=== PATIENT | male | born 1955 | race African-American/Black ===

== ENCOUNTER 2017-02-20 14:11 | Inpatient (IN) ==
[2017-02-20] MEDS ORDERED: METOCLOPRAMIDE 10 MG/2 ML VIAL IV STA (15:07)
[2017-02-20] MEDS ORDERED: ONDANSETRON 4 MG/2 ML VIAL IV STA (15:07)
[2017-02-20] MEDS ORDERED: PANTOPRAZOLE 40 MG VIAL IV STA (15:07)
[2017-02-20] MEDS ORDERED: SODIUM CHLORIDE 0.9% 500 ML IV STA (15:07)
[2017-02-20] MEDS ORDERED: DICYCLOMINE 20 MG/2 ML AMP IM ONE ×2 (15:07→15:49)
--- NOTE | 2017-02-20 15:13 | Emergency Department Note ---
Arrival - Arrival Chief Complaint: Abdominal / Flank Pain Stated Complaint: stomach hurting and throwing up ED Nursing Triage Note: C/O having abdomen pain that started on tuesday., denies checking temp., + chills., + diarrhea, + nausea., + vomiting., denies having urinary symptoms., states his pain is located in the center of the lower abd., states the pain is stabbing , states his last meal was last evening., states he has not been taking his blood pressure medication over the last two days., last dialysis was 1 month ago Mode of Arrival: Ambulatory Limitations: No Limitations Source: Patient Time Seen by Provider: 02/20/17 15:07 - History of Present Illness HPI Narrative: This 61-year-old black male presents with onset of crampy periumbilical pain 3 days previously followed by low-grade nausea with a couple episodes of vomiting but significant loose bowel movements of 3 a day. He denies any melena or bright red blood per stool nor does he describe any emesis that is coffee- ground in appearance. He denies any complaints of heartburn, belching, water brash, colitis, diverticulitis, or pancreatitis. The patient is a former dialysis patient who has just recently been taken off dialysis with miraculous return of his renal function to normal. Coincident with stopping dialysis has been return of his heart rhythm to normal sinus from hard to control atrial fibrillation. Currently he appears medically stable. Onset (ago): day(s) (Patient presents 3 days post onset of symptoms) Allergies/Adverse Reactions: Allergies Allergy/AdvReac Type Severity Reaction Status Date / Time indomethacin [From Indocin] Allergy Severe ITCHING Verified 02/20/17 14:23 Home Medications: Home Medications Medication Instructions Recorded Confirmed Type Carvedilol [Coreg] 6.25 mg PO BID 02/20/17 02/20/17 History Sevelamer Carbonate Tab [Renvela 800 mg PO TID W/MEALS 02/20/17 02/20/17 History Tab] amLODIPine [Norvasc] 10 mg PO DAILY 02/20/17 02/20/17 History cloNIDine TAB [Catapres Tab] 0.3 mg PO TID 02/20/17 02/20/17 History Review of System - Review of System 12 point system: reviewed and no additional remarkable complaints except as stated - Review of System Constitutional: Present: as per HPI Respiratory: Present: as per HPI Cardiovascular: Present: as per HPI Gastrointestinal: Present: as per HPI Medical,Surgical,& Family Hx - Medical History Cardio: History of: Cardiac Dysrhythmia (IRREGULAR HEAT RQATE -HX PT TOOK HIMSELF OFF NORVASC AND HAS TO SEEM TO DC), Hypertension Comment Only: Cardiovascular Problems (TOLD DR MASTERSON ABOUT IRREGULAR HEART RATE HE SAID NOTHING TO WORRY ABOUT) HEENT: History of: Eye Problem (GLASSES) Renal: History of: Dialysis (CATHETERS R UPPER CHEST), Renal Failure Musculoskeletal: History of: Musculoskeletal Problems (GOUT) - Surgical History Abdominal Surgeries: Surgical HX of: Colonoscopy, Hernia Repair - Family History Family History: Reports;: Family Hypertension - Social History Smoking Status: Never smoker Frequency of Alcohol Use: None Type of Drug Use: None Exam Physical Examination: GENERAL: Well developed, well nourished black male in no acute distress. HEENT: Normocephalic. No trauma. Moist mucous membranes. EOMI. PERRLA. ENT NML NECK: Supple. No adenopathy. CARDIAC: Regular. No murmurs. Heart rate 88 CHEST: Clear to auscultation. No respiratory distress. O2 sat 98% ABDOMEN: Soft. Tender in the periumbilical area with hypoactive bowel sounds. EXTREMITIES: No trauma. Normal ROM. No pedal edema. AV fistula right upper extremity with good thrill. SKIN: No diaphoresis. No rash. NEURO: Alert. Neuro intact no focal deficits. Vital Signs: Vital Signs Temperature 97.6 F 02/20/17 14:18 Pulse Rate 91 H 02/20/17 16:48 Respiratory Rate 16 02/20/17 16:48 Blood Pressure 198/103 02/20/17 16:48 O2 Sat by Pulse Oximetry 100 02/20/17 16:48 Course - Reevaluation(s) Reevaluation #1: Advised patient of his kidney failure once again and the need to go back to dialysis. For this reason he will be admitted for stabilization. - Consultations Consultation #1: Discussed with hospitalist service who will admit for further evaluation treatment. Results - Labs CBC & BMP: 02/20/17 16:26 02/20/17 16:26 Labs: I have reviewed the results and noted the significant abnormalities of renal function and hyperkalemia. - Impressions EKG: Sinus at [address] interval and QRS duration. LVH with strain pattern laterally and inferiorly no acute injury pattern noted - Diagnostic Findings Procedure: Abdominal x-ray: image reviewed by me, report reviewed by me ( Totally normal abdomen) Disposition Clinical Impression: Renal failure, Hyperkalemia, Hypertension, Atrial fibrillation Case discussed with: patient, patient's family Disposition: Still a Patient Condition: Guarded Time of Disposition: 17:13
[2017-02-20] MEDS ORDERED: hydrALAZINE 20 MG/1 ML VIAL IV STA (15:28)
--- NOTE | 2017-02-20 15:36 | XRay Report ---
Two-view abdomen. Indication: Abdomen pain, generalized. No prior study. The heart is normal in size. No free air. No intra-abdominal organomegaly. No abnormal calcifications over the renal outlines. Small vascular calcifications in the left pelvis. Previous right lower quadrant hernia repair. Normal bowel gas pattern. Normal osseous structures. Impression: No acute abnormality. PROCEDURE INTERPRETED AT [facility] DEPARTMENT OF RADIOLOGY Final Report Signed by: Dr. Lori Knight
[2017-02-20] MEDS ORDERED: hydrALAZINE 20 MG/1 ML VIAL ONE (15:48)
[2017-02-20] MEDS ORDERED: PANTOPRAZOLE 40 MG VIAL IV ONE (15:48)
[2017-02-20] MEDS ORDERED: ONDANSETRON 4 MG/2 ML VIAL ONE (15:49)
[2017-02-20] MEDS ORDERED: METOCLOPRAMIDE 10 MG/2 ML VIAL ONE (15:49)
[2017-02-20 16:34] LABS: Basophils % 0.2 % (0.0-0.8); Eosinophils # 0.1 10*3/uL (0.0-0.87); Eosinophils % 1.3 % (0.00-10.9); Hematocrit 41.2 VOL% (42.0-52.0); Hemoglobin 14.3 GM/DL (14.0-18.0); Immature Granulocytes % 0.6 %; Immature Granulocytes Absolute 0.06 #; Lymphocytes # 2.1 10*3/uL (1.4-4.0); Lymphocytes % 20.5 % (21.2-54.2); Mean Corpuscular HGB Conc 34.7 GM/DL (32-36); Mean Corpuscular Hemoglobin 32 PG (27-34); Mean Corpuscular Volume 91.4 FL (87-102); Mean Platelet Volume 9.8 FL (9.6-12.0); Monocytes % 9.9 % (1.7-12.7); Neutrophils % 67.5 % (38.7-73.9); Platelet Count 228 T/CUMM (130-400); Red Blood Count 4.51 MC/CUMM (3.8-5.5); White Blood Count 10.3 T/CUMM (4-12)
[2017-02-20] MEDS ORDERED: methylPREDNISolone SOD SUC 125 MG/2 ML VIAL ONE (16:45)
[2017-02-20] MEDS ORDERED: methylPREDNISolone SOD SUC 125 MG/2 ML VIAL IV STA (16:51)
[2017-02-20 17:05] LABS: Lactic Acid 0.7 MMOL/L (0.4-2.0)
[2017-02-20 17:06] LABS: Alanine Aminotransferase 19 U/L (16-61); Albumin 3.3 G/DL (3.4-5.0); Alkaline Phosphatase 53 U/L (45-117); Amylase 85 U/L (25-115); Aspartate Amino Transferase 12 U/L (0-37); Bilirubin,Total < 0.39 MG/DL (0.2-1.0); Blood Urea Nitrogen 109 MG/DL (7-18); Calcium 8.6 MG/DL (8.5-10.1); Glucose 115 MG/DL (74-106); Potassium 5.8 MMOL/L (3.5-5.1); Sodium 143 MMOL/L (136-145); Total Protein 6.2 G/DL (6.4-8.3)
[2017-02-20 17:07] LABS: Troponin I Only 0.074 NG/ML (0.00-0.045)
[2017-02-20] MEDS ORDERED: LACTULOSE 20 GM/30 ML UDCUP PO PRN (17:17)
[2017-02-20] MEDS ORDERED: ACETAMINOPHEN 325 MG TABLET PO PRN (17:17)
[2017-02-20] MEDS ORDERED: ONDANSETRON 4 MG/2 ML VIAL IV PRN (17:17)
[2017-02-20] MEDS ORDERED: SODIUM POLYSTYRENE SULFATE 15 GM/60 ML BOTTLE PO STA (17:23)
[2017-02-20 17:27] LABS: Apearance,Urine CLEAR (Clear); Bacteria,Urine Occasional /HPF (Few); Bilirubin,Urine Negative (Negative); Blood, Urine Negative (Negative); Glucose,Urine (UA) 50 mg/dL (Negative); Ketones,Urine Negative (Negative); Nitrite,Urine Negative (Negative); Protein,Urine 100 MG/DL; RBC,Urine 1 /HPF (0-4); Squamous Epithelial Cell,Urine Occasional /HPF (0-10); Urine Color Straw (Yellow); Urine Specific Gravity 1.011 (1.001-1.035); Urine Urobilinogen < 2.0 EU/DL (0.2-1.0); WBC,Urine 3 /HPF (0-6)
[2017-02-20 17:32] LABS: Barbiturates Screen,Urine Negative (Negative); Benzodiazepines Screen,Urine Negative (Negative); Cannabinoid Screen,Urine Negative (Negative); Opiate Screen,Urine Negative (Negative); Phencyclidine Screen,Urine Negative (Negative)
--- NOTE | 2017-02-20 17:54 | Hospitalist History & Physical ---
Assessment and Plan - Time spent with patient Time spent with patient: Greater than 30 minutes (1) Acute on chronic renal failure Status: Chronic Assessment and plan: Patient's creatinine is 11.2 on admission. He will be admitted to the hospital medicine service for further evaluation and treatment. Nephrology has been consulted. Will start gentle IV hydration, Kayexalate and bicarb replacement. Current Visit: No (2) Hypertension Status: Chronic Assessment and plan: Patient reports an allergy to hydralazine. We will add labetalol to control his acute hypertension. Continue home medications. Current Visit: No (3) Hyperkalemia Status: Acute Assessment and plan: Potassium is 5.8. Kayexalate 30 mg. Current Visit: No (4) Volume depletion Status: Resolved Assessment and plan: IV fluids. Current Visit: No History of Present Illness Chief complaint: Acute on chronic kidney disease History of present illness: Mr. Mccurdy is a 61 year old -[place] male with a past medical history significant for gout, hypertension, end-stage renal disease with previous hemodialysis who presents to the [place] ED with complaints of abdominal pain 3 days. The patient reports that he began feeling nauseous with abdominal pain and vomiting on Tuesday. He took some Pepto-Bismol with little relief. Patient reports that he recently stopped hemodialysis approximately 1 month ago after reportedly being told that his "kidney function had returned to normal". He reports today that, on last exam approximately 2 weeks ago, his creatinine was greater than 11. Today, his creatinine is 11.20. His electrolytes are grossly elevated and he is hypertensive. Patient reports that he is feeling better after receiving Zofran however he still reports abdominal pain in his periumbilical region. He denies headache, near syncope, chest pain, palpitations, shortness of breath, lower extremity edema, numbness or tingling. Lab work on admission include: WBC 10.3, hemoglobin 14.3, hematocrit 41.2, sodium 143, potassium 5.8, chloride 116, carbon dioxide 13, BUN 109, creatinine 11.20, glucose 115. Patient will be admitted to the hospital medicine service for further evaluation and treatment. We have consulted nephrology to restore hemodialysis. Patient is a full code. Home medications have been reviewed and reconciled. Home Medications Medication Instructions Recorded Confirmed Type Carvedilol [Coreg] 6.25 mg PO BID 02/20/17 02/20/17 History Sevelamer Carbonate Tab [Renvela 800 mg PO TID W/MEALS 02/20/17 02/20/17 History Tab] amLODIPine [Norvasc] 10 mg PO DAILY 02/20/17 02/20/17 History cloNIDine TAB [Catapres Tab] 0.3 mg PO TID 02/20/17 02/20/17 History Allergies Allergy/AdvReac Type Severity Reaction Status Date / Time indomethacin [From Indocin] Allergy Severe ITCHING Verified 02/20/17 14:23 Medical,Surgical,& Family Hx - Medical History Cardio: History of: Cardiac Dysrhythmia (IRREGULAR HEAT RQATE -HX PT TOOK HIMSELF OFF NORVASC AND HAS TO SEEM TO DC), Hypertension Comment Only: Cardiovascular Problems (TOLD DR MASTERSON ABOUT IRREGULAR HEART RATE HE SAID NOTHING TO WORRY ABOUT) HEENT: History of: Eye Problem (GLASSES) Renal: History of: Dialysis (CATHETERS R UPPER CHEST), Renal Failure Musculoskeletal: History of: Musculoskeletal Problems (GOUT) - Surgical History Abdominal Surgeries: Surgical HX of: Colonoscopy, Hernia Repair - Family History Family History: Reports;: Family Hypertension - Social History Smoking Status: Never smoker Frequency of Alcohol Use: None Type of Drug Use: None Marital Status: Lives With:: Spouse Functional capacity: independent ambulation 12 point system: reviewed and no additional remarkable complaints except as stated Exam - Constitutional Vitals: Period Temp Pulse Resp BP Sys/Morris Pulse Ox Last 24 Hr 97.6 F-97.6 F 81-104 15-18 187-221/97-125 98-100 Exam: General appearance: normal weight, mild distress - Head Head exam: Present: normocephalic, atraumatic - Eye Eye exam: Present: EOMI. Absent: conjunctival injection, nystagmus Pupils: Present: GRISEL, normal accommodation - ENT ENT exam: Present: normal exam, normal external ear exam - Neck Neck exam: Present: normal inspection. Absent: lymphadenopathy, tenderness, thyromegaly - Respiratory Respiratory exam: Present: clear to auscultation bilaterally. Absent: rales, rhonchi, wheezes - Cardiovascular Cardiovascular exam: Present: regular rate and rhythm. Absent: carotid bruit, gallop, rubs - GI/Abdominal GI/Abdominal exam: Present: normal bowel sounds, soft, nontender. Absent: ascites, distended, mass - Extremities Exam Extremities exam: Present: normal inspection, normal capillary refill. Absent: edema - Back Exam Back exam: Absent: CVA tenderness (L), CVA tenderness (R) - Neurological Exam Neurological exam: Present: alert, oriented X3, CN II through XII intact, reflexes normal - Psychiatric Psychiatric exam: Present: normal affect, normal mood - Skin Skin exam: Present: normal color, warm, dry Results - Labs CBC & BMP: 02/20/17 16:26 02/20/17 16:26 Lab Results: I have reviewed the past 24 hour labs
[2017-02-20] MEDS ORDERED: SODIUM POLYSTYRENE SULFATE 15 GM/60 ML BOTTLE ONE (18:24)
[2017-02-20] MEDS ORDERED: SODIUM CHLORIDE 0.9% 1,000 ML IV SCH (18:30)
[2017-02-20] MEDS ORDERED: LISINOPRIL 10 MG TABLET ONE (18:37)
[2017-02-20] MEDS ORDERED: LISINOPRIL 20 MG TABLET PO STA (18:39)
[2017-02-20] MEDS ORDERED: NIFEdipine 10 MG CAPSULE PO PRN (18:59)
[2017-02-20] MEDS ORDERED: ENALAPRIL 2.5 MG/2 ML VIAL IV PRN (18:59)
[2017-02-20] MEDS ORDERED: [UNRECOGNIZED DRUG - OTHER] IV SCH (20:00)
[2017-02-20] MEDS ORDERED: SODIUM ACETATE IV SCH (20:00)
[2017-02-20] MEDS ORDERED: SODIUM CHLORIDE IV SCH (20:00)
[2017-02-20] MEDS ORDERED: INSULIN LISPRO 100 UNIT/ML SUBCUT SCH (21:00)
[2017-02-20] MEDS: CARVEDILOL 6.25 MG TABLET PO SCH (21:14)
[2017-02-21 01:04] LABS: Troponin I Only 0.082 NG/ML (0.00-0.045)
[2017-02-21 05:43] LABS: Basophils % 0.2 % (0.0-0.8); Hematocrit 37.6 VOL% (42.0-52.0); Hemoglobin 12.8 GM/DL (14.0-18.0); Immature Granulocytes % 0.5 %; Immature Granulocytes Absolute 0.03 #; Lymphocytes # 0.8 10*3/uL (1.4-4.0); Lymphocytes % 12.7 % (21.2-54.2); Mean Corpuscular Hemoglobin 32 PG (27-34); Mean Corpuscular Volume 93.1 FL (87-102); Monocytes # 0.1 10*3/uL (0.11-0.8); Monocytes % 1.1 % (1.7-12.7); Neutrophils # 5.4 10*3/uL (1.4-7.4); Neutrophils % 85.5 % (38.7-73.9); Platelet Count 214 T/CUMM (130-400); Red Blood Count 4.04 MC/CUMM (3.8-5.5); White Blood Count 6.4 T/CUMM (4-12)
[2017-02-21 06:13] LABS: Calcium 8.8 MG/DL (8.5-10.1); Osmolality,Calculated 315.3 MOS/KG (273-304); Potassium 5.6 MMOL/L (3.5-5.1)
[2017-02-21 06:20] LABS: Troponin I Only 0.082 NG/ML (0.00-0.045)
--- NOTE | 2017-02-21 07:21 | EKG Report ---
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
--- NOTE | 2017-02-21 08:16 | EKG Report ---
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
[2017-02-21] MEDS: SEVELAMER CARBONATE 800 MG TABLET PO SCH ×2 (08:43→12:26)
[2017-02-21] MEDS: CARVEDILOL 6.25 MG TABLET PO SCH (08:44)
[2017-02-21] MEDS ORDERED: amLODIPine 10 MG TABLET PO SCH (09:00)
[2017-02-21] MEDS ORDERED: PANTOPRAZOLE 40 MG TABLET PO SCH (09:00)
--- NOTE | 2017-02-21 09:24 | Hospitalist Progress Note ---
Assessment and Plan (1) Hypertension Status: Chronic Current Visit: No Qualifiers: Hypertension type: essential hypertension Qualified Code(s): I10 - Essential (primary) hypertension (2) Hyperkalemia Status: Acute Assessment and plan: Patient is received Kayexalate. Potassium is noted be 5.6. When evidence of underlying renal failure. Current Visit: No (3) Metabolic acidosis Status: Acute Assessment and plan: Continue with bicarb. We will add 3 times 3 times daily with meals. Current Visit: No (4) ESRD (end stage renal disease) Status: Chronic Assessment and plan: Patient was off dialysis for approximately 1 month. Appears that he will have to be restarted on dialysis. Updating the patient on his underlying renal dysfunction. We will get a hepatitis panel. Nephrology has been consulted. Current Visit: No (5) Essential (primary) hypertension Status: Chronic Current Visit: No (6) Hyperkalemia Status: Acute Current Visit: No Hospitalist: Subjective Interval history: This patient with history of end-stage renal disease due to hypertension and diabetes has been on dialysis at the [facility] dialysis unit. He has been off of dialysis for approximately 1 month due to possible return of kidney function. However the gentleman presented with a 3 day history of nausea vomiting or abdominal cramping. His serum creatinine was noted to be greater than 11 and his BUN greater than 100. This morning he states his abdominal pain is improved. Serum creatinine is noted to be 10.9 and BUN of 105. Metabolic acidosis is still noted with a bicarb of 15. Discussed with patient about returning to dialysis given his underlying renal failure as well as symptoms. Nephrology has been consulted. Exam - Constitutional Vitals: Period Temp Pulse Resp BP Sys/Morris Pulse Ox Last 24 Hr 97 F-99.1 F 80-119 15-22 164-221/89-125 97-100 General appearance: normal weight - Head Head exam: Present: normal inspection - Eye Eye exam: Present: EOMI - ENT ENT exam: Present: normal exam - Respiratory Respiratory exam: Present: clear to auscultation bilaterally - Cardiovascular Cardiovascular exam: Present: regular rate and rhythm - GI/Abdominal GI/Abdominal exam: Present: normal bowel sounds - Extremities Exam Extremities exam: Present: normal inspection - Back Exam Back exam: Present: normal inspection - Neurological Exam Neurological exam: Present: alert, oriented X3, CN II-XII intact - Psychiatric Psychiatric exam: Present: normal affect - Skin Skin exam: Present: normal color Results - Labs CBC & BMP: 02/21/17 04:26 02/21/17 04:26
[2017-02-21 11:21] VITALS: BP 142/78
[2017-02-21 11:48] LABS: Hepatitis A Ab IgM Quant 0.07 Index; Hepatitis A Ab IgM Result Negative (Negative); Hepatitis B Core IgM Quant 0.15 Index; Hepatitis B Core IgM Result Negative (Negative); Hepatitis B Surface Ag Quant < 0.10 Index; Hepatitis B Surface Ag Result Negative (Negative); Hepatitis C Virus Ab Quant 0.11 Index; Hepatitis C Virus Ab Result Negative (Negative)
--- NOTE | 2017-02-21 13:54 | Discharge Summary ---
Hospital Course - Hospital Course Hospital Course: This hospitalization included patient admitted for nausea vomiting abdominal pain that resolved within a 24 hour.. The gentleman had no white count on hemogram. No fevers or chills. Of note patient had been off dialysis for approximately 1 month. He has serum creatinine was noted to be up to 11 on admission and serum potassium was noted to be 5.6. Within a 24 hours, the serum creatinine remain at 10.9. Detailed discussion with patient about returning to hemodialysis. He had a acute hepatitis panel drawn that was negative. After that discussion, he mentioned that he wanted to wait and follow -up with his crutcher helper. He has been hemodynamically stable. He is prepared for discharge home today in follow-up with Dr. Beaver on Tuesday. Of note the gentleman has a mature AV fistula and instruction for patient to continue to protect that arm. Diagnosis - Discharge Diagnosis (1) Hypertension Status: Chronic (2) Hyperkalemia Status: Acute (3) Metabolic acidosis Status: Chronic (4) ESRD (end stage renal disease) Status: Chronic (5) Essential (primary) hypertension Status: Chronic (6) Hyperkalemia Status: Resolved Discharge Plan - Discharge Data Disposition: Disch To Home/Self Care Condition at Discharge: Stable Activity: resume usual activities as tolerated Contact your physician if you experience:: fever over 101 - Discharge Medications New Pantoprazole Tab [Protonix Tab] 40 mg PO DAILY #30 tablet Calcium Carbonate [Tums Chew Tab] 750 mg PO TID #90 tablet Continue cloNIDine TAB [Catapres Tab] 0.3 mg PO TID Sevelamer Carbonate Tab [Renvela Tab] 800 mg PO TID W/MEALS Carvedilol [Coreg] 6.25 mg PO BID amLODIPine [Norvasc] 10 mg PO DAILY - Follow Up or Referral - Forms/Instructions Additional Discharge Instructions: Follow-up with Dr. Beaver for this Tuesday at schedule appointment. Protect AV fistula Exam - Constitutional Vitals: Period Temp Pulse Resp BP Sys/Morris Pulse Ox Last 24 Hr 97 F-99.1 F 75-119 15-22 142-221/78-125 97-100 General appearance: normal weight - Head Head exam: Present: normal inspection - Eye Pupils: Present: GRISEL - Neck Neck exam: Present: normal inspection - Respiratory Respiratory exam: Present: clear to auscultation bilaterally - Cardiovascular Cardiovascular exam: Present: regular rate and rhythm - GI/Abdominal GI/Abdominal exam: Present: normal bowel sounds - Extremities Exam Extremities exam: Present: normal inspection, full ROM - Neurological Exam Neurological exam: Present: alert, oriented X3, CN II-XII intact - Psychiatric Psychiatric exam: Present: normal affect, normal mood - Skin Skin exam: Present: normal color, dry Discharge Results Procedures and tests throughout hospitalization: Pending Orders 02/22/17 04:00 Basic Metabolic Panel IN AM Comp Blood Count Auto Diff IN AM 02/23/17 04:00 Basic Metabolic Panel IN AM Comp Blood Count Auto Diff IN AM Labs on day of discharge: Labs from last 24 hours 02/21/17 02/21/17 02/21/17 05:14 04:26 04:26 WBC RBC Hgb Hct MCV MCH MCHC RDW Plt Count MPV Neut % (Auto) Lymph % (Auto) Miller % (Auto) Eos % (Auto) Baso % (Auto) Neut # (Auto) Lymph # (Auto) Miller # (Auto) Eos # (Auto) Baso # (Auto) Immature Gran % Nucleated RBC % Immature Gran # Nucleated RBCs # Sodium 141 Potassium 5.6 H Chloride 113 H Carbon Dioxide 15 L Anion Gap 18.6 H BUN 105 H Creatinine 10.90 H GFR Calculation 6 BUN/Creatinine Ratio 9.00 Glucose 141 H Hemoglobin A1c Calculated Osmolality 315.3 H Lactic Acid Calcium 8.8 Phosphorus Magnesium Total Bilirubin AST ALT Alkaline Phosphatase Total Creatine Kinase 59 CK-MB (CK-2) 2.9 Troponin I 0.082 H Total Protein Albumin Globulin Albumin/Globulin Ratio Amylase Lipase Urine Color Urine Appearance Urine pH Ur Specific [place] Urine Protein Urine Glucose (UA) Urine Ketones Urine Blood Urine Nitrate Urine Bilirubin Urine Urobilinogen Urine Leukocytes Urine RBC Urine WBC Ur Squamous Epith Cells Urine Bacteria Ur Culture Indicated? Urine Opiates Screen Ur Barbiturates Screen Ur Phencyclidine Scrn U Amphetamine/Methamph U Benzodiazepines Scrn U Cocaine Metab Screen U Cannabinoids Screen Hepatitis A IgM Ab Negative Hep Bs Antigen Negative Hep B Core IgM Ab Negative Hepatitis C Antibody Negative 02/21/17 02/20/17 02/20/17 04:26 23:56 17:20 WBC 6.4 D RBC 4.04 Hgb 12.8 L Hct 37.6 L MCV 93.1 MCH 32 MCHC 34.0 RDW 14.0 Plt Count 214 MPV 10.0 Neut % (Auto) 85.5 H Lymph % (Auto) 12.7 L Miller % (Auto) 1.1 L Eos % (Auto) 0.0 Baso % (Auto) 0.2 Neut # (Auto) 5.4 Lymph # (Auto) 0.8 L Miller # (Auto) 0.1 L Eos # (Auto) 0.0 Baso # (Auto) 0.0 Immature Gran % 0.5 Nucleated RBC % 0.0 Immature Gran # 0.03 Nucleated RBCs # 0.00 Sodium Potassium Chloride Carbon Dioxide Anion Gap BUN Creatinine GFR Calculation BUN/Creatinine Ratio Glucose Hemoglobin A1c Calculated Osmolality Lactic Acid Calcium Phosphorus Magnesium Total Bilirubin AST ALT Alkaline Phosphatase Total Creatine Kinase 63 CK-MB (CK-2) 3.1 Troponin I 0.082 H Total Protein Albumin Globulin Albumin/Globulin Ratio Amylase Lipase Urine Color Urine Appearance Urine pH Ur Specific [place] Urine Protein Urine Glucose (UA) Urine Ketones Urine Blood Urine Nitrate Urine Bilirubin Urine Urobilinogen Urine Leukocytes Urine RBC Urine WBC Ur Squamous Epith Cells Urine Bacteria Ur Culture Indicated? Urine Opiates Screen Negative Ur Barbiturates Screen Negative Ur Phencyclidine Scrn Negative U Amphetamine/Methamph Negative U Benzodiazepines Scrn Negative U Cocaine Metab Screen Negative U Cannabinoids Screen Negative Hepatitis A IgM Ab Hep Bs Antigen Hep B Core IgM Ab Hepatitis C Antibody 02/20/17 02/20/17 02/20/17 17:20 16:33 16:33 WBC RBC Hgb Hct MCV MCH MCHC RDW Plt Count MPV Neut % (Auto) Lymph % (Auto) Miller % (Auto) Eos % (Auto) Baso % (Auto) Neut # (Auto) Lymph # (Auto) Miller # (Auto) Eos # (Auto) Baso # (Auto) Immature Gran % Nucleated RBC % Immature Gran # Nucleated RBCs # Sodium Potassium Chloride Carbon Dioxide Anion Gap BUN Creatinine GFR Calculation BUN/Creatinine Ratio Glucose Hemoglobin A1c 5.1 Calculated Osmolality Lactic Acid Calcium Phosphorus Magnesium 2.0 Total Bilirubin AST ALT Alkaline Phosphatase Total Creatine Kinase CK-MB (CK-2) Troponin I Total Protein Albumin Globulin Albumin/Globulin Ratio Amylase Lipase Urine Color Straw Urine Appearance Clear Urine pH 5.0 Ur Specific [place] 1.011 Urine Protein 100 Urine Glucose (UA) 50 Urine Ketones Negative Urine Blood Negative Urine Nitrate Negative Urine Bilirubin Negative Urine Urobilinogen < 2.0 H Urine Leukocytes Negative Urine RBC 1 Urine WBC 3 Ur Squamous Epith Cells Occasional Urine Bacteria Occasional Ur Culture Indicated? Not indicated Urine Opiates Screen Ur Barbiturates Screen Ur Phencyclidine Scrn U Amphetamine/Methamph U Benzodiazepines Scrn U Cocaine Metab Screen U Cannabinoids Screen Hepatitis A IgM Ab Hep Bs Antigen Hep B Core IgM Ab Hepatitis C Antibody 02/20/17 02/20/17 02/20/17 16:26 16:26 16:26 WBC RBC Hgb Hct MCV MCH MCHC RDW Plt Count MPV Neut % (Auto) Lymph % (Auto) Miller % (Auto) Eos % (Auto) Baso % (Auto) Neut # (Auto) Lymph # (Auto) Miller # (Auto) Eos # (Auto) Baso # (Auto) Immature Gran % Nucleated RBC % Immature Gran # Nucleated RBCs # Sodium 143 Potassium 5.8 H Chloride 116 H Carbon Dioxide 13 L Anion Gap 19.8 H BUN 109 H Creatinine 11.20 H GFR Calculation 6 BUN/Creatinine Ratio 9.00 Glucose 115 H Hemoglobin A1c Calculated Osmolality 319.0 H Lactic Acid 0.7 Calcium 8.6 Phosphorus 5.1 H Magnesium Total Bilirubin < 0.39 AST 12 ALT 19 Alkaline Phosphatase 53 Total Creatine Kinase 59 CK-MB (CK-2) 2.9 Troponin I 0.074 H Total Protein 6.2 L Albumin 3.3 L Globulin 2.9 Albumin/Globulin Ratio 1.1 Amylase 88 85 Lipase 301.0 Urine Color Urine Appearance Urine pH Ur Specific [place] Urine Protein Urine Glucose (UA) Urine Ketones Urine Blood Urine Nitrate Urine Bilirubin Urine Urobilinogen Urine Leukocytes Urine RBC Urine WBC Ur Squamous Epith Cells Urine Bacteria Ur Culture Indicated? Urine Opiates Screen Ur Barbiturates Screen Ur Phencyclidine Scrn U Amphetamine/Methamph U Benzodiazepines Scrn U Cocaine Metab Screen U Cannabinoids Screen Hepatitis A IgM Ab Hep Bs Antigen Hep B Core IgM Ab Hepatitis C Antibody 02/20/17 16:26 WBC 10.3 RBC 4.51 Hgb 14.3 Hct 41.2 L MCV 91.4 MCH 32 MCHC 34.7 RDW 14.0 Plt Count 228 MPV 9.8 Neut % (Auto) 67.5 Lymph % (Auto) 20.5 L Miller % (Auto) 9.9 Eos % (Auto) 1.3 Baso % (Auto) 0.2 Neut # (Auto) 7.0 Lymph # (Auto) 2.1 Miller # (Auto) 1.0 H Eos # (Auto) 0.1 Baso # (Auto) 0.0 Immature Gran % 0.6 Nucleated RBC % 0.0 Immature Gran # 0.06 Nucleated RBCs # 0.00 Sodium Potassium Chloride Carbon Dioxide Anion Gap BUN Creatinine GFR Calculation BUN/Creatinine Ratio Glucose Hemoglobin A1c Calculated Osmolality Lactic Acid Calcium Phosphorus Magnesium Total Bilirubin AST ALT Alkaline Phosphatase Total Creatine Kinase CK-MB (CK-2) Troponin I Total Protein Albumin Globulin Albumin/Globulin Ratio Amylase Lipase Urine Color Urine Appearance Urine pH Ur Specific [place] Urine Protein Urine Glucose (UA) Urine Ketones Urine Blood Urine Nitrate Urine Bilirubin Urine Urobilinogen Urine Leukocytes Urine RBC Urine WBC Ur Squamous Epith Cells Urine Bacteria Ur Culture Indicated? Urine Opiates Screen Ur Barbiturates Screen Ur Phencyclidine Scrn U Amphetamine/Methamph U Benzodiazepines Scrn U Cocaine Metab Screen U Cannabinoids Screen Hepatitis A IgM Ab Hep Bs Antigen Hep B Core IgM Ab Hepatitis C Antibody DS: Provider Date of admission: 02/20/17 17:17 Primary care physician: . No PCP Attending physician on admission: Jesús Knight DO Consults: 02/20/17 17:49 Consult to Physician [CONS] Routine Comment: Acute on chronic renal failure Consulting Provider: Manny Garcia Jr. When should Consulting Provider be notified: Now When should Consulting Provider be notified: Now Person Notified: ANGELOLEONEL Date Notified: 02/21/17 Time Notified: 08:46 02/20/17 19:48 Consult to Dietitian [CONS] Routine Reason for Dietitian: Dietary Consult Discharging clinician: Manny Garcia Jr., MD
== END 2017-02-21 15:30 | disposition home or self-care (01) | DRG 683 ==
LOC: N.ED 14:11 → N.EDINP 17:17 → SUATTDRO 17:17 → N.4E 18:44
PROVIDERS: ADMIT Internal Medicine; ATTEND Internal Medicine Nephrology

== ENCOUNTER 2019-04-28 10:17 | Inpatient (IN) ==
[2019-04-28 10:52] LABS: Apearance,Urine CLEAR (Clear); Bacteria,Urine Occasional /HPF (Few); Bilirubin,Urine Negative (Negative); Blood, Urine Moderate mg/dL (Negative); Glucose,Urine (UA) 50 mg/dL (Negative); Ketones,Urine Negative (Negative); Mucus,Urine Occasional /LPF (Occasional); Nitrite,Urine Negative (Negative); Protein,Urine 100 MG/DL; RBC,Urine 2 /HPF (0-4); Squamous Epithelial Cell,Urine Occasional /HPF (0-10); Urine Color Straw (Yellow); Urine Urobilinogen < 2.0 EU/DL (0.2-1.0); WBC,Urine 3 /HPF (0-6)
[2019-04-28 11:22] LABS: Basophils % 0.4 % (0.0-0.8); Eosinophils # 0.1 10*3/uL (0.0-0.87); Eosinophils % 0.9 % (0.00-10.9); Hemoglobin 9.3 GM/DL (14.0-18.0); Immature Granulocytes % 1.5 %; Immature Granulocytes Absolute 0.12 #; Lymphocytes # 1.2 10*3/uL (1.4-4.0); Lymphocytes % 14.4 % (21.2-54.2); Mean Corpuscular Volume 100.3 FL (87-102); Mean Platelet Volume 9.1 FL (9.6-12.0); Monocytes % 7.7 % (1.7-12.7); Neutrophils % 75.1 % (38.7-73.9); Platelet Count 138 T/CUMM (130-400); Red Blood Count 2.99 MC/CUMM (3.8-5.5); Red Cell Distribution Width 15.3 % (9.3-17.3); White Blood Count 8.1 T/CUMM (4-12)
[2019-04-28 11:58] LABS: Alanine Aminotransferase 21 U/L (16-61); Albumin 3.5 G/DL (3.4-5.0); Alkaline Phosphatase 35 U/L (45-117); Aspartate Amino Transferase 15 U/L (0-37); Bilirubin,Total < 0.39 MG/DL (0.2-1.0); Blood Urea Nitrogen 110 MG/DL (7-18); Calcium 8.2 MG/DL (8.5-10.1); Glucose 98 MG/DL (74-106); Total Protein 6.4 G/DL (6.4-8.3)
[2019-04-28] MEDS ORDERED: ONDANSETRON 4 MG/2 ML VIAL IV STA (14:04)
[2019-04-28] MEDS ORDERED: SODIUM CHLORIDE 0.9% 500 ML IV ONE (14:04)
[2019-04-28] MEDS ORDERED: MORPHINE 4 MG/1 ML VIAL IV STA ×2 (14:04→16:07)
[2019-04-28] MEDS ORDERED: cefTRIAXone 1,000 MG in SODIUM CHLORIDE 0.9% 100 ML IV STA (14:16)
[2019-04-28] MEDS ORDERED: LACTULOSE 20 GM/30 ML UDCUP PO PRN (15:25)
[2019-04-28] MEDS ORDERED: ONDANSETRON 4 MG/2 ML VIAL IV PRN (15:25)
[2019-04-28] MEDS ORDERED: ACETAMINOPHEN 325 MG TABLET PO PRN (15:25)
[2019-04-28 15:52] LABS: Risk Ratio 2.9
[2019-04-28] MEDS ORDERED: PIPERACILLIN/TAZOBACTAM 3,375 MG in SODIUM CHLORIDE 0.9% 100 ML IV SCH (16:00)
[2019-04-28] MEDS: SODIUM CHLORIDE 0.9% 1,000 ML IV SCH (16:58)
[2019-04-28] MEDS: PIPERACILLIN/TAZOBACTAM 3,375 MG in SODIUM CHLORIDE 0.9% 100 ML IV SCH (16:58)
[2019-04-28] MEDS ORDERED: CALCIUM (CARBONATE) 500 MG TABLET PO PRN (17:21)
[2019-04-28] MEDS: MORPHINE 4 MG/1 ML VIAL IV PRN ×2 (17:58→20:55)
[2019-04-28] MEDS ORDERED: CALCIUM CARBONATE CHEW 500 MG TABLET PO PRN (18:00)
[2019-04-28] MEDS: amLODIPine 10 MG TABLET PO SCH (20:55)
[2019-04-28 23:22] LABS: Apearance,Urine CLEAR (Clear); Bilirubin,Urine Negative (Negative); Blood, Urine Small mg/dL (Negative); Glucose,Urine (UA) 50 mg/dL (Negative); Ketones,Urine Negative (Negative); Mucus,Urine Occasional /LPF (Occasional); Nitrite,Urine Negative (Negative); Protein,Urine 100 MG/DL; RBC,Urine 1 /HPF (0-4); Squamous Epithelial Cell,Urine Occasional /HPF (0-10); Urine Color Straw (Yellow); Urine Specific Gravity 1.009 (1.001-1.035); Urine Urobilinogen < 2.0 EU/DL (0.2-1.0); WBC,Urine <1 /HPF (0-6)
[2019-04-29] MEDS: MORPHINE 4 MG/1 ML VIAL IV PRN (01:44)
[2019-04-29 04:35] LABS: Basophils % 0.2 % (0.0-0.8); Eosinophils # 0.1 10*3/uL (0.0-0.87); Eosinophils % 0.8 % (0.00-10.9); Hematocrit 32.5 VOL% (42.0-52.0); Immature Granulocytes % 1.7 %; Immature Granulocytes Absolute 0.14 #; Lymphocytes # 0.6 10*3/uL (1.4-4.0); Lymphocytes % 7.3 % (21.2-54.2); Mean Corpuscular HGB Conc 30.8 GM/DL (32-36); Mean Corpuscular Volume 98.8 FL (87-102); Mean Platelet Volume 9.8 FL (9.6-12.0); Platelet Count 165 T/CUMM (130-400); Red Blood Count 3.29 MC/CUMM (3.8-5.5); Red Cell Distribution Width 15.3 % (9.3-17.3); White Blood Count 8.2 T/CUMM (4-12)
[2019-04-29 05:06] LABS: Calcium 8.6 MG/DL (8.5-10.1); Osmolality,Calculated 318.8 MOS/KG (273-304)
[2019-04-29] MEDS ORDERED: SODIUM POLYSTYRENE SULFATE 15 GM/60 ML BOTTLE PO ONE (05:11)
[2019-04-29] MEDS: PIPERACILLIN/TAZOBACTAM 3,375 MG in SODIUM CHLORIDE 0.9% 100 ML IV SCH ×2 (05:32→16:13)
[2019-04-29] MEDS: SODIUM CHLORIDE 0.9% 1,000 ML IV SCH ×2 (09:27→17:25)
[2019-04-29] MEDS: amLODIPine 10 MG TABLET PO SCH ×2 (09:28→21:14)
[2019-04-29] MEDS: PANTOPRAZOLE 40 MG TABLET PO SCH (09:28)
[2019-04-29] MEDS ORDERED: KETOROLAC 30 MG/1 ML VIAL IV PRN (10:41)
[2019-04-29] MEDS ORDERED: SODIUM BICARB INJ 150 MEQ in DEXTROSE 5% 850 ML IV SCH (11:30)
[2019-04-29 11:54] LABS: Hepatitis B Core IgM Quant 0.18 Index; Hepatitis B Surface Ag Quant < 0.10 Index; Hepatitis B Surface Ag Result Negative (Negative); Hepatitis C Virus Ab Quant 0.07 Index; Hepatitis C Virus Ab Result Negative (Negative)
[2019-04-29] MEDS ORDERED: LABETALOL 20 MG/4 ML SYRINGE IV PRN (14:09)
[2019-04-29 20:24] LABS: Calcium 8.3 MG/DL (8.5-10.1); Osmolality,Calculated 290.4 MOS/KG (273-304)
[2019-04-30] MEDS: PIPERACILLIN/TAZOBACTAM 3,375 MG in SODIUM CHLORIDE 0.9% 100 ML IV SCH ×2 (04:34→16:38)
[2019-04-30 05:07] LABS: Basophils % 0.3 % (0.0-0.8); Eosinophils # 0.1 10*3/uL (0.0-0.87); Eosinophils % 0.7 % (0.00-10.9); Hematocrit 29.6 VOL% (42.0-52.0); Hemoglobin 9.6 GM/DL (14.0-18.0); Immature Granulocytes % 1.3 %; Lymphocytes # 0.6 10*3/uL (1.4-4.0); Lymphocytes % 7.6 % (21.2-54.2); Mean Corpuscular HGB Conc 32.4 GM/DL (32-36); Mean Corpuscular Volume 94.6 FL (87-102); Mean Platelet Volume 9.6 FL (9.6-12.0); Monocytes % 8.7 % (1.7-12.7); Neutrophils % 81.4 % (38.7-73.9); Platelet Count 134 T/CUMM (130-400); Red Blood Count 3.13 MC/CUMM (3.8-5.5); Red Cell Distribution Width 14.8 % (9.3-17.3); White Blood Count 7.5 T/CUMM (4-12)
[2019-04-30 05:30] LABS: Calcium 8.2 MG/DL (8.5-10.1); Osmolality,Calculated 298.1 MOS/KG (273-304)
[2019-04-30] MEDS: PANTOPRAZOLE 40 MG TABLET PO SCH (10:58)
[2019-04-30] MEDS: amLODIPine 10 MG TABLET PO SCH ×2 (10:58→21:45)
[2019-05-01] MEDS: PIPERACILLIN/TAZOBACTAM 3,375 MG in SODIUM CHLORIDE 0.9% 100 ML IV SCH (04:30)
[2019-05-01 06:06] LABS: Basophils % 0.3 % (0.0-0.8); Eosinophils # 0.1 10*3/uL (0.0-0.87); Eosinophils % 0.9 % (0.00-10.9); Hematocrit 30.1 VOL% (42.0-52.0); Hemoglobin 9.5 GM/DL (14.0-18.0); Immature Granulocytes Absolute 0.07 #; Lymphocytes # 0.6 10*3/uL (1.4-4.0); Lymphocytes % 9.3 % (21.2-54.2); Mean Corpuscular HGB Conc 31.6 GM/DL (32-36); Mean Corpuscular Volume 97.1 FL (87-102); Mean Platelet Volume 9.5 FL (9.6-12.0); Monocytes % 10.2 % (1.7-12.7); Neutrophils % 78.3 % (38.7-73.9); Platelet Count 125 T/CUMM (130-400); Red Cell Distribution Width 14.6 % (9.3-17.3); White Blood Count 6.7 T/CUMM (4-12)
[2019-05-01 06:25] LABS: Calcium 8.3 MG/DL (8.5-10.1); Osmolality,Calculated 303.1 MOS/KG (273-304)
[2019-05-01] MEDS: PANTOPRAZOLE 40 MG TABLET PO SCH (08:55)
[2019-05-01] MEDS: amLODIPine 10 MG TABLET PO SCH (08:55)
[2019-05-01 11:31] VITALS: BP 159/78
== END 2019-05-01 14:26 | disposition home or self-care (01) | DRG 694 ==
LOC: N.ED 10:17 → N.4E 15:25 → SUATTDRO 15:25 → N.4E 16:39
PROVIDERS: ADMIT Internal Medicine

== ENCOUNTER 2019-11-27 19:29 | Inpatient (IN) ==
[2019-11-27] MEDS ORDERED: VECURONIUM 10 MG VIAL IV ONE (19:45)
[2019-11-27] MEDS ORDERED: ETOMIDATE 20 MG/10 ML VIAL IV ONE (19:45)
[2019-11-27] MEDS ORDERED: FUROSEMIDE 100 MG/10 ML VIAL ONE (19:55)
[2019-11-27] MEDS ORDERED: MORPHINE 4 MG/1 ML VIAL ONE (19:57)
[2019-11-27] MEDS ORDERED: ONDANSETRON 4 MG/2 ML VIAL ONE (19:58)
[2019-11-27] MEDS ORDERED: FUROSEMIDE 100 MG/10 ML VIAL IV STA (20:12)
[2019-11-27] MEDS ORDERED: ONDANSETRON 4 MG/2 ML VIAL IV STA (20:12)
[2019-11-27] MEDS ORDERED: methylPREDNISolone SOD SUC 125 MG/2 ML VIAL IV STA (20:12)
[2019-11-27] MEDS ORDERED: MORPHINE 4 MG/1 ML VIAL IV STA (20:12)
[2019-11-27] MEDS ORDERED: ETOMIDATE 20 MG/10 ML VIAL IV STA (20:12)
[2019-11-27] MEDS ORDERED: PIPERACILLIN/TAZOBACTAM 3,375 MG in SODIUM CHLORIDE 0.9% 100 ML IV STA (20:12)
[2019-11-27] MEDS ORDERED: NITROGLYCERIN 2% OINT 1 INCH/GM PACK TOP STA (20:12)
[2019-11-27] MEDS ORDERED: VECURONIUM 10 MG VIAL IV STA (20:12)
[2019-11-27 20:24] LABS: Basophils % 0.4 % (0.0-0.8); Eosinophils % 0.2 % (0.00-10.9); Hematocrit 37.6 VOL% (42.0-52.0); Hemoglobin 11.3 GM/DL (14.0-18.0); Immature Granulocytes % 0.9 %; Lymphocytes # 2.1 10*3/uL (1.4-4.0); Lymphocytes % 19.6 % (21.2-54.2); Mean Corpuscular HGB Conc 30.1 GM/DL (32-36); Mean Corpuscular Volume 94.9 FL (87-102); Mean Platelet Volume 10.5 FL (9.6-12.0); Monocytes % 5.3 % (1.7-12.7); Neutrophils % 73.6 % (38.7-73.9); Platelet Count 203 T/CUMM (130-400); Red Blood Count 3.96 MC/CUMM (3.8-5.5); Red Cell Distribution Width 15.9 % (9.3-17.3); White Blood Count 10.9 T/CUMM (4-12)
[2019-11-27 20:25] LABS: ABG Base Excess -11.7 MMOL/L (-2.5-2.5); ABG HCO3 15.3 MMOL/L (20-26); ABG Oxygen Saturation 94.3 % (95-100); ABG TCO2 23.6 MMOL/L (23-27)
[2019-11-27 20:31] LABS: ABG PH 6.962 (7.35-7.45)
[2019-11-27] MEDS ORDERED: SODIUM BICARBONATE 50 MEQ/50 ML VIAL IV STA (20:32)
[2019-11-27 20:41] LABS: Albumin 3.9 G/DL (3.4-5.0); Bilirubin,Total 0.4 MG/DL (0.2-1.0); Calcium 9.4 MG/DL (8.5-10.1); Osmolality,Calculated 311.5 MOS/KG (273-304)
[2019-11-27] MEDS ORDERED: MAGNESIUM SULF RIDER 2 GM in PREMIX 1 EACH IV STA (20:45)
[2019-11-27 20:51] LABS: PT Patient Result 10.4 SECS (9.8-11.9)
[2019-11-27] MEDS ORDERED: niCARdipine INJ 25 MG in SODIUM CHLORIDE 0.9% 240 ML IV PRN (21:06)
[2019-11-27] MEDS ORDERED: niCARdipine 25 MG/10 ML VIAL IV ONE (21:07)
[2019-11-27 21:56] LABS: Apearance,Urine CLEAR (Clear); Bacteria,Urine Occasional /HPF (Few); Bilirubin,Urine Negative (Negative); Blood, Urine Large mg/dL (Negative); Glucose,Urine (UA) 50 mg/dL (Negative); Ketones,Urine Negative (Negative); Nitrite,Urine Negative (Negative); Protein,Urine 100 MG/DL; RBC,Urine 124 /HPF (0-4); Squamous Epithelial Cell,Urine Occasional /HPF (0-10); Urine Color Yellow (Yellow); Urine Specific Gravity 1.012 (1.001-1.035); Urine Urobilinogen < 2.0 EU/DL (0.2-1.0); WBC,Urine 4 /HPF (0-6)
[2019-11-27 22:06] LABS: Barbiturates Screen,Urine Negative (Negative); Benzodiazepines Screen,Urine Negative (Negative); Cannabinoid Screen,Urine Negative (Negative); Opiate Screen,Urine Negative (Negative); Phencyclidine Screen,Urine Negative (Negative)
[2019-11-27 22:12] LABS: Ferritin 75.2 ng/ml (26-388)
[2019-11-28 01:46] LABS: ABG Base Excess -16.3 MMOL/L (-2.5-2.5); ABG HCO3 12.3 MMOL/L (20-26); ABG Oxygen Saturation 94.6 % (95-100); Allen Test Positive; Pt O2 Delivery Device Ventilator
[2019-11-28 01:53] LABS: ABG PH 6.789 (7.35-7.45)
[2019-11-28] MEDS ORDERED: ALBUTEROL 2.5 MG/3 ML NEB RESP TX PRN (02:14)
[2019-11-28 04:01] LABS: Allen Test Positive; Pt O2 Delivery Device Ventilator
[2019-11-28 04:03] LABS: ABG Base Excess -15.2 MMOL/L (-2.5-2.5); ABG HCO3 12.9 MMOL/L (20-26); ABG Oxygen Saturation 85.1 % (95-100); ABG PCO2 62.8 MM HG (35-48); ABG TCO2 16.1 MMOL/L (23-27)
[2019-11-28 04:14] LABS: ABG PH 7.038 (7.35-7.45)
[2019-11-28] MEDS: HEPARIN 5,000 UNIT/1 ML VIAL SUBCUT SCH ×3 (04:52→21:31)
[2019-11-28 07:12] LABS: CKMB % 3.3 %
[2019-11-28 07:14] LABS: Albumin 2.7 G/DL (3.4-5.0); Bilirubin,Total 0.4 MG/DL (0.2-1.0); Calcium 8.1 MG/DL (8.5-10.1); Osmolality,Calculated 314.7 MOS/KG (273-304); Total Protein 6.5 G/DL (6.4-8.3)
[2019-11-28 07:15] LABS: Basophils % 0.2 % (0.0-0.8); Hematocrit 43.7 VOL% (42.0-52.0); Immature Granulocytes % 1.1 %; Immature Granulocytes Absolute 0.18 #; Lymphocytes # 0.7 10*3/uL (1.4-4.0); Lymphocytes % 4.3 % (21.2-54.2); Mean Corpuscular HGB Conc 28.4 GM/DL (32-36); Mean Corpuscular Volume 100.7 FL (87-102); Mean Platelet Volume 10.7 FL (9.6-12.0); Monocytes % 6.2 % (1.7-12.7); Neutrophils % 88.2 % (38.7-73.9); Platelet Count 179 T/CUMM (130-400); Red Blood Count 4.34 MC/CUMM (3.8-5.5); White Blood Count 16.4 T/CUMM (4-12)
[2019-11-28 07:16] LABS: Troponin I 0.5 NG/ML (0.00-0.045)
[2019-11-28 07:18] LABS: Hemoglobin 12.4 GM/DL (14.0-18.0)
[2019-11-28 07:40] LABS: Anisocytosis 1+; Band Neutrophils 14 % (0-10); Lymphocytes 7 % (20-55); Macrocytosis 1+; Metamyelocytes 1 %; Platelet Estimate Normal; Poikilocytosis 1+; Segmented Neutrophils 75 % (50-85); Total Cells Counted 100
[2019-11-28 07:41] LABS: Burr Cells Few
[2019-11-28] MEDS ORDERED: SODIUM BICARBONATE 50 MEQ/50 ML VIAL IV ONE ×3 (07:48→19:43)
[2019-11-28] MEDS ORDERED: SODIUM CHLORIDE 0.9% 100 ML IV ONE (08:07)
[2019-11-28] MEDS: PANTOPRAZOLE 40 MG VIAL IV SCH (09:09)
[2019-11-28] MEDS: SODIUM BICARB INJ 150 MEQ in STERILE WATER INJ 850 ML IV SCH ×2 (09:09→19:29)
[2019-11-28 10:37] LABS: ABG Base Excess -10.7 MMOL/L (-2.5-2.5); ABG Oxygen Saturation 96.1 % (95-100); ABG PCO2 48.6 MM HG (35-48); ABG PO2 94.9 MM HG (80-95); ABG TCO2 16.5 MMOL/L (23-27); Allen Test Positive; Pt O2 Delivery Device Ventilator
[2019-11-28 10:38] LABS: ABG PH 7.177 (7.35-7.45)
[2019-11-28] MEDS: PIPERACILLIN/TAZOBACTAM 3,375 MG in SODIUM CHLORIDE 0.9% 100 ML IV SCH ×2 (12:00→22:13)
[2019-11-28 14:12] LABS: Hepatitis B Core IgM Quant 0.08 Index; Hepatitis B Surface Ag Quant < 0.10 Index; Hepatitis B Surface Ag Result Negative (Negative); Hepatitis C Virus Ab Quant 0.09 Index; Hepatitis C Virus Ab Result Negative (Negative)
[2019-11-28] MEDS ORDERED: MIDAZOLAM 10 MG/2 ML VIAL ONE (18:10)
[2019-11-28] MEDS ORDERED: MIDAZOLAM 10 MG/2 ML VIAL IV ONE (18:30)
[2019-11-28] MEDS ORDERED: MORPHINE 4 MG/1 ML VIAL ONE (18:41)
[2019-11-28] MEDS ORDERED: LIDOCAINE 1% 20 ML VIAL ONE (18:42)
[2019-11-28] MEDS ORDERED: HEPARIN/NACL 0.9% 2 UNITS/ML 1,000 ML IV ONE (18:42)
[2019-11-28] MEDS ORDERED: MAGNESIUM SULF RIDER 2 GM in PREMIX 1 EACH IV PRN (18:43)
[2019-11-28] MEDS ORDERED: POTASSIUM CHLORIDE RIDER 10 MEQ in PREMIX 1 EACH IV PRN (18:43)
[2019-11-28] MEDS ORDERED: MORPHINE 4 MG/1 ML VIAL IV ONE (18:50)
[2019-11-28 19:24] LABS: CKMB % 4.8 %
[2019-11-28 19:33] LABS: Calcium 7.3 MG/DL (8.5-10.1); Osmolality,Calculated 302.5 MOS/KG (273-304); Troponin I 0.592 NG/ML (0.00-0.045)
[2019-11-28 19:40] LABS: ABG HCO3 25.3 MMOL/L (20-26); ABG Oxygen Saturation 99.1 % (95-100); ABG PCO2 41.6 MM HG (35-48); ABG PH 7.402 (7.35-7.45)
[2019-11-28] MEDS ORDERED: HEPARIN/NACL 0.9% 2 UNITS/ML 500 ML IV ONE ×2 (19:58→21:21)
[2019-11-28] MEDS ORDERED: GLUCAGON 1 MG VIAL IM PRN (20:18)
[2019-11-28] MEDS ORDERED: SODIUM CHLORIDE 0.9% 1,000 ML IV SCH (20:30)
[2019-11-28] MEDS: CHLORHEXIDINE 4% SOLN 118 ML BOTTLE TOP SCH (22:00)
[2019-11-28] MEDS: CHLORHEXIDINE 0.12% ORAL RINSE 60 ML BOTTLE SWISH/SPIT SCH (22:13)
[2019-11-29] MEDS: SODIUM BICARB INJ 150 MEQ in STERILE WATER INJ 850 ML IV SCH (02:30)
[2019-11-29] MEDS: CHLORHEXIDINE 4% SOLN 118 ML BOTTLE TOP SCH ×3 (04:07→17:15)
[2019-11-29 04:21] LABS: Hematocrit 35.8 VOL% (42.0-52.0); Hemoglobin 11.1 GM/DL (14.0-18.0); Immature Granulocytes % 0.5 %; Immature Granulocytes Absolute 0.05 #; Lymphocytes # 0.5 10*3/uL (1.4-4.0); Lymphocytes % 4.8 % (21.2-54.2); Mean Corpuscular Volume 92.3 FL (87-102); Mean Platelet Volume 12.6 FL (9.6-12.0); Monocytes % 6.8 % (1.7-12.7); Neutrophils % 87.9 % (38.7-73.9); Platelet Count 79 T/CUMM (130-400); Red Blood Count 3.88 MC/CUMM (3.8-5.5); Red Cell Distribution Width 15.7 % (9.3-17.3); White Blood Count 10.8 T/CUMM (4-12)
[2019-11-29 04:37] LABS: Albumin 2.3 G/DL (3.4-5.0); Calcium 7.2 MG/DL (8.5-10.1); Osmolality,Calculated 304.7 MOS/KG (273-304); Total Protein 5.4 G/DL (6.4-8.3)
[2019-11-29 04:39] LABS: Band Neutrophils 4 % (0-10); Hypochromasia 1+; Lymphocytes 5 % (20-55); Ovalocytes Slight; Platelet Estimate Decreased; Segmented Neutrophils 86 % (50-85); Total Cells Counted 100
[2019-11-29 04:40] LABS: Macrocytosis Slight
[2019-11-29] MEDS ORDERED: VANCOMYCIN 1,000 MG VIAL ONE (04:40)
[2019-11-29] MEDS ORDERED: VANCOMYCIN 500 MG VIAL ONE (04:40)
[2019-11-29] MEDS ORDERED: PAPAVERINE 60 MG/2 ML VIAL ONE (04:40)
[2019-11-29] MEDS ORDERED: CEFUROXIME INJ 1,500 MG in SYRINGE 1 EACH IV ONE (05:00)
[2019-11-29 05:09] LABS: Risk Ratio 3.68
[2019-11-29 05:18] LABS: ABG Base Excess 0.9 MMOL/L (-2.5-2.5); ABG Oxygen Saturation 95.5 % (95-100); ABG PCO2 43.5 MM HG (35-48); ABG PH 7.395 (7.35-7.45); ABG PO2 83.5 MM HG (80-95); ABG TCO2 27.4 MMOL/L (23-27); Allen Test Positive; Pt O2 Delivery Device Ventilator
[2019-11-29] MEDS ORDERED: DOBUTamine 500 MG/250 ML PREMIX IV ONE ×2 (05:49→15:52)
[2019-11-29] MEDS ORDERED: SUFentanil 250 MCG/5 ML AMP ONE (05:50)
[2019-11-29] MEDS ORDERED: HEPARIN/NACL 0.9% 2 UNITS/ML 500 ML IV ONE (05:50)
[2019-11-29] MEDS ORDERED: MIDAZOLAM 10 MG/2 ML VIAL ONE (05:50)
[2019-11-29] MEDS ORDERED: PHENYLEPHRINE DRIP 20 MG/250 ML PREMIX IV ONE (05:50)
[2019-11-29] MEDS ORDERED: CALCIUM CHLORIDE 1,000 MG/10 ML VIAL IV ONE (05:50)
[2019-11-29] MEDS ORDERED: ePHEDrine 50 MG/ML AMP ONE (05:50)
[2019-11-29] MEDS ORDERED: LACTATED RINGERS 1,000 ML IV ONE (05:51)
[2019-11-29] MEDS ORDERED: AMINOCAPROIC ACID 5,000 MG/20 ML VIAL ONE (05:51)
[2019-11-29] MEDS ORDERED: VECURONIUM 10 MG VIAL IV ONE (05:51)
[2019-11-29] MEDS ORDERED: NITROGLYCERIN DRIP 50 MG/250 ML BOTTLE IV ONE (05:51)
[2019-11-29] MEDS ORDERED: SODIUM CHLORIDE 0.9% 250 ML IV ONE (05:51)
[2019-11-29] MEDS ORDERED: SODIUM CHLORIDE 0.9% 1,000 ML IV ONE (05:51)
[2019-11-29 07:58] LABS: ABG Base Excess -0.7 MMOL/L (-2.5-2.5); ABG HCO3 25.7 MMOL/L (20-26); ABG Oxygen Saturation 97.7 % (95-100); ABG PH 7.321 (7.35-7.45); ABG PO2 122.9 MM HG (80-95); ABG TCO2 27.3 MMOL/L (23-27); Glucose Heart Surgery 81 MG/DL (74-106); Hemoglobin Heart Surgery 10.5 G/DL (14.0-18.0); Ionized Calcium Arterial 0.91 MMOL/L (1.21-1.46); PH Patient Temp Arterial 7.321; PO2 Patient Temp Arterial 122.9 MM HG; Patient Temperature 37 CELCIUS; Potassium Heart/CVR 5.2 MMOL/L (3.5-5.1); Sodium Heart/CVR 136 MMOL/L (135-145)
[2019-11-29 09:07] LABS: Hematocrit Heart Surgery 18.6 PERCENT (42-52); PCO2 Patient Temp Venous 40.4 MM HG; PH Patient Temp Venous 7.39; Potassium Heart/CVR 5.5 MMOL/L (3.5-5.1); VBG Base Excess -0.2 MEQ/L (0-4); VBG HCO3 24.1 MEQ/L (24-28); VBG Oxygen Saturation 77.4 %; VBG PCO2 44.5 MMHG (41-51); VBG PH 7.361; VBG PO2 43.6 MMHG (17-40)
[2019-11-29 09:08] LABS: Hemoglobin Heart Surgery 5.9 G/DL (14.0-18.0)
[2019-11-29] MEDS ORDERED: EPINEPHrine 1 MG/ML VIAL ONE (09:08)
[2019-11-29] MEDS ORDERED: diphenhydrAMINE 50 MG/1 ML VIAL ONE (09:09)
[2019-11-29] MEDS ORDERED: FAMOTIDINE 20 MG/2 ML VIAL IV ONE (09:09)
[2019-11-29 09:41] LABS: Hematocrit Heart Surgery 23.2 PERCENT (42-52); Hemoglobin Heart Surgery 7.4 G/DL (14.0-18.0); PCO2 Patient Temp Venous 29.3 MM HG; PH Patient Temp Venous 7.484; PO2 Patient Temp Venous 37.1 MM HG; Potassium Heart/CVR 5.1 MMOL/L (3.5-5.1); VBG Base Excess -0.9 MEQ/L (0-4); VBG HCO3 23.5 MEQ/L (24-28); VBG Oxygen Saturation 82.2 %; VBG PCO2 33.8 MMHG (41-51); VBG PH 7.439; VBG PO2 45.6 MMHG (17-40)
[2019-11-29 10:10] LABS: Hematocrit Heart Surgery 23.2 PERCENT (42-52); Hemoglobin Heart Surgery 7.4 G/DL (14.0-18.0); PCO2 Patient Temp Venous 28.1 MM HG; PH Patient Temp Venous 7.464; PO2 Patient Temp Venous 37.7 MM HG; Potassium Heart/CVR 4.7 MMOL/L (3.5-5.1); VBG Base Excess -2.9 MEQ/L (0-4); VBG HCO3 21.8 MEQ/L (24-28); VBG PCO2 32.4 MMHG (41-51); VBG PH 7.42; VBG PO2 46.3 MMHG (17-40)
[2019-11-29] MEDS: PIPERACILLIN/TAZOBACTAM 3,375 MG in SODIUM CHLORIDE 0.9% 100 ML IV SCH ×2 (10:34→20:45)
[2019-11-29 10:41] LABS: Hematocrit Heart Surgery 21.1 PERCENT (42-52); Hemoglobin Heart Surgery 6.7 G/DL (14.0-18.0); PCO2 Patient Temp Venous 32.7 MM HG; PH Patient Temp Venous 7.405; PO2 Patient Temp Venous 38.1 MM HG; Potassium Heart/CVR 5.3 MMOL/L (3.5-5.1); VBG Base Excess -3.7 MEQ/L (0-4); VBG Oxygen Saturation 70.8 %; VBG PCO2 32.7 MMHG (41-51); VBG PH 7.405; VBG PO2 38.1 MMHG (17-40)
[2019-11-29 11:07] LABS: Hematocrit Heart Surgery 24.6 PERCENT (42-52); Hemoglobin Heart Surgery 7.9 G/DL (14.0-18.0); PCO2 Patient Temp Venous 37.2 MM HG; PH Patient Temp Venous 7.433; Potassium Heart/CVR 5.1 MMOL/L (3.5-5.1); VBG Base Excess 0.7 MEQ/L (0-4); VBG HCO3 24.9 MEQ/L (24-28); VBG Oxygen Saturation 81.3 %; VBG PCO2 37.2 MMHG (41-51); VBG PH 7.433
[2019-11-29] MEDS ORDERED: THROMBIN TOPICAL (RECOMBINANT) 5,000 UNIT VIAL TOP ONE (11:19)
[2019-11-29] MEDS ORDERED: ALBUTEROL INHALER 8 GM INH ONE (11:29)
[2019-11-29 11:48] LABS: ABG Base Excess -4.5 MMOL/L (-2.5-2.5); ABG HCO3 20.7 MMOL/L (20-26); ABG Oxygen Saturation 99.6 % (95-100); ABG PCO2 41.1 MM HG (35-48); ABG PH 7.321 (7.35-7.45); Glucose Heart Surgery 163 MG/DL (74-106); Hematocrit Heart Surgery 24.4 PERCENT (42-52); Hemoglobin Heart Surgery 7.8 G/DL (14.0-18.0); Ionized Calcium Arterial 0.87 MMOL/L (1.21-1.46); PCO2 Patient Temp Arterial 41.1 MMHG; PH Patient Temp Arterial 7.321; Patient Temperature 37 CELCIUS; Potassium Heart/CVR 4.6 MMOL/L (3.5-5.1); Sodium Heart/CVR 136 MMOL/L (135-145)
[2019-11-29] MEDS ORDERED: ALBUMIN 25% 25 GM/100 ML VIAL IV ONE (11:56)
[2019-11-29] MEDS ORDERED: MANNITOL 100 GM/500 ML BAG IV ONE (11:56)
[2019-11-29] MEDS ORDERED: LIDOCAINE 2% 5 ML VIAL ONE (11:56)
[2019-11-29] MEDS ORDERED: PROTAMINE SULFATE 250 MG/25 ML VIAL IV ONE (11:56)
[2019-11-29] MEDS ORDERED: DEXTROSE 5% KCL 20 MEQ 20 MEQ/1,000 ML BAG IV ONE (11:56)
[2019-11-29] MEDS ORDERED: SODIUM BICARBONATE 50 MEQ/50 ML VIAL IV ONE ×3 (11:56→16:35)
[2019-11-29] MEDS ORDERED: FUROSEMIDE 20 MG/2 ML VIAL ONE (11:57)
[2019-11-29] MEDS ORDERED: methylPREDNISolone SOD SUC 1,000 MG/8 ML VIAL ONE (11:57)
[2019-11-29] MEDS ORDERED: PROTAMINE SULFATE 50 MG/5 ML VIAL IV ONE (11:57)
[2019-11-29] MEDS ORDERED: MAGNESIUM SULFATE 5 GM/10 ML VIAL IV ONE (11:57)
[2019-11-29] MEDS ORDERED: HEPARIN 10,000 UNIT/10 ML VIAL ONE (11:57)
[2019-11-29 12:33] LABS: ABG Base Excess -2.4 MMOL/L (-2.5-2.5); ABG HCO3 22.4 MMOL/L (20-26); ABG Oxygen Saturation 99.9 % (95-100); ABG PCO2 39.8 MM HG (35-48); ABG PH 7.364 (7.35-7.45); ABG TCO2 21.4 MMOL/L (23-27); Glucose Heart Surgery 151 MG/DL (74-106); Hematocrit Heart Surgery 23.3 PERCENT (42-52); Hemoglobin Heart Surgery 7.5 G/DL (14.0-18.0); Ionized Calcium Arterial 0.93 MMOL/L (1.21-1.46); PCO2 Patient Temp Arterial 39.8 MMHG; PH Patient Temp Arterial 7.364; Patient Temperature 37 CELCIUS; Potassium Heart/CVR 4.7 MMOL/L (3.5-5.1); Sodium Heart/CVR 139 MMOL/L (135-145)
[2019-11-29] MEDS ORDERED: PHENYLEPHRINE DRIP 40 MG/250 ML PREMIX IV ONE (12:56)
[2019-11-29] MEDS ORDERED: MAGNESIUM SULF RIDER 2 GM in PREMIX 1 EACH IV PRN (13:09)
[2019-11-29] MEDS ORDERED: LACTATED RINGERS 250 ML IV PRN (13:09)
[2019-11-29] MEDS ORDERED: CALCIUM CHLORIDE 1,000 MG/10 ML SYRINGE IV PRN (13:09)
[2019-11-29] MEDS ORDERED: POTASSIUM CHLORIDE RIDER 10 MEQ in PREMIX 1 EACH IV PRN (13:09)
[2019-11-29] MEDS ORDERED: INSULIN REGULAR 100 UNIT/ML IV ONE (13:09)
[2019-11-29] MEDS ORDERED: DEXTROSE 10% 250 ML BAG IV PRN ×2 (13:09)
[2019-11-29] MEDS ORDERED: MORPHINE 10 MG/1 ML VIAL IV PRN (13:09)
[2019-11-29] MEDS ORDERED: MAGNESIUM SULF RIDER 4 GM in PREMIX 1 EACH IV PRN (13:09)
[2019-11-29] MEDS ORDERED: POTASSIUM CHLORIDE RIDER 20 MEQ in PREMIX 1 EACH IV PRN (13:09)
[2019-11-29] MEDS ORDERED: CHLORHEXIDINE 4% SOLN 118 ML BOTTLE TOP PRN (13:09)
[2019-11-29] MEDS ORDERED: INSULIN REGULAR 100 UNIT/ML IV PRN (13:09)
[2019-11-29] MEDS ORDERED: ACETAMINOPHEN 650 MG SUPP RECTAL PRN (13:09)
[2019-11-29] MEDS ORDERED: VECURONIUM 10 MG VIAL IV PRN ×2 (13:09)
[2019-11-29] MEDS ORDERED: MIDAZOLAM 10 MG/2 ML VIAL IV PRN (13:09)
[2019-11-29] MEDS ORDERED: SODIUM CHLORIDE 0.45% 1,000 ML IV SCH ×2 (13:30)
[2019-11-29] MEDS ORDERED: SEVOFLURANE 1 UNIT/15 MINUTE INH ONE (13:42)
[2019-11-29 13:49] LABS: ABG Base Excess -2.7 MMOL/L (-2.5-2.5); ABG HCO3 22.1 MMOL/L (20-26); ABG Oxygen Saturation 96.3 % (95-100); ABG PCO2 46.2 MM HG (35-48); ABG PH 7.314 (7.35-7.45); ABG TCO2 22.1 MMOL/L (23-27); Glucose Heart Surgery 139 MG/DL (74-106); Hematocrit Heart Surgery 24.9 PERCENT (42-52); Potassium Heart/CVR 4.9 MMOL/L (3.5-5.1)
[2019-11-29 14:04] LABS: Hematocrit 24.5 VOL% (42.0-52.0); Hemoglobin 7.8 GM/DL (14.0-18.0); Immature Granulocytes % 0.4 %; Immature Granulocytes Absolute 0.02 #; Lymphocytes # 0.5 10*3/uL (1.4-4.0); Lymphocytes % 9.3 % (21.2-54.2); Mean Corpuscular HGB Conc 31.8 GM/DL (32-36); Mean Corpuscular Volume 89.4 FL (87-102); Mean Platelet Volume 10.4 FL (9.6-12.0); Monocytes % 5.7 % (1.7-12.7); Neutrophils % 84.6 % (38.7-73.9); Platelet Count 81 T/CUMM (130-400); Red Blood Count 2.74 MC/CUMM (3.8-5.5); Red Cell Distribution Width 15.8 % (9.3-17.3); White Blood Count 5.3 T/CUMM (4-12)
[2019-11-29 14:10] LABS: Bilirubin,Total 0.6 MG/DL (0.2-1.0); Calcium 8.2 MG/DL (8.5-10.1); Osmolality,Calculated 310.3 MOS/KG (273-304); Total Protein 4.1 G/DL (6.4-8.3)
[2019-11-29 14:12] LABS: CKMB % 13.3 %
[2019-11-29 14:15] LABS: INR 1.5; PT Patient Result 15.6 SECS (9.8-11.9); Partial Thromboplastin Time 36.8 SECS (23.9-33.8)
[2019-11-29 14:55] LABS: Lymphocytes 13 % (20-55); Segmented Neutrophils 85 % (50-85); Total Cells Counted 100
[2019-11-29 14:59] LABS: Hypochromasia Slight; Nucleated Red Blood Cells 0 (0-5); Platelet Estimate Decreased
[2019-11-29] MEDS ORDERED: SODIUM BICARB INJ 150 MEQ in STERILE WATER INJ 850 ML IV SCH (15:30)
[2019-11-29] MEDS ORDERED: SODIUM CHLORIDE 0.9% 1,000 ML IV PRN (15:54)
[2019-11-29 15:56] LABS: ABG Base Excess -7.7 MMOL/L (-2.5-2.5); ABG HCO3 18.2 MMOL/L (20-26); ABG Oxygen Saturation 98.5 % (95-100); ABG PCO2 35.6 MM HG (35-48); ABG PH 7.309 (7.35-7.45); ABG TCO2 16.5 MMOL/L (23-27); Glucose Heart Surgery 182 MG/DL (74-106); Hematocrit Heart Surgery 29.1 PERCENT (42-52); Hemoglobin Heart Surgery 9.4 G/DL (14.0-18.0); Potassium Heart/CVR 5.6 MMOL/L (3.5-5.1)
[2019-11-29] MEDS: PANTOPRAZOLE 40 MG VIAL IV SCH (17:15)
[2019-11-29] MEDS: CHLORHEXIDINE 0.12% ORAL RINSE 60 ML BOTTLE SWISH/SPIT SCH ×3 (17:15→20:46)
[2019-11-29] MEDS: INSULIN REGULAR DRIP 100 ML IV SCH (17:34)
[2019-11-29] MEDS: DOBUTamine 500 MG/250 ML PREMIX IV SCH (17:35)
[2019-11-29] MEDS: PHENYLEPHRINE DRIP 40 MG/250 ML PREMIX IV PRN ×3 (17:37→21:30)
[2019-11-29] MEDS: ALBUMIN 5% 12.5 GM in PREMIX 1 EACH IV PRN ×4 (17:37→22:07)
[2019-11-29 17:53] LABS: ABG Base Excess -3.7 MMOL/L (-2.5-2.5); ABG HCO3 21.4 MMOL/L (20-26); ABG Oxygen Saturation 99.5 % (95-100); ABG PCO2 35.3 MM HG (35-48); ABG TCO2 19.3 MMOL/L (23-27); Glucose Heart Surgery 144 MG/DL (74-106); Hematocrit Heart Surgery 27.7 PERCENT (42-52); Hemoglobin Heart Surgery 8.9 G/DL (14.0-18.0); Potassium Heart/CVR 5.3 MMOL/L (3.5-5.1)
[2019-11-29] MEDS ORDERED: CALCIUM GLUCONATE 1,000 MG in SODIUM CHLORIDE 0.9% 100 ML IV ONE (18:00)
[2019-11-29] MEDS: SODIUM BICARB INJ 150 MEQ in DEXTROSE 5% 850 ML IV SCH (18:41)
[2019-11-29 19:48] LABS: ABG Base Excess -5.6 MMOL/L (-2.5-2.5); ABG HCO3 19.8 MMOL/L (20-26); ABG Oxygen Saturation 98.6 % (95-100); ABG PCO2 35.1 MM HG (35-48); Glucose Heart Surgery 127 MG/DL (74-106); Hematocrit Heart Surgery 27.9 PERCENT (42-52); Potassium Heart/CVR 5.2 MMOL/L (3.5-5.1)
[2019-11-29 20:09] LABS: CKMB % 13.5 %
[2019-11-29] MEDS ORDERED: CEFUROXIME INJ 1,500 MG in SYRINGE 1 EACH IV SCH (21:11)
[2019-11-29] MEDS: MORPHINE 4 MG/1 ML VIAL IV PRN (21:13)
[2019-11-29] MEDS: DEXMEDETOMIDINE 400 MCG in SODIUM CHLORIDE 0.9% 96 ML IV PRN (21:15)
[2019-11-29 22:07] LABS: ABG HCO3 19.4 MMOL/L (20-26); ABG Oxygen Saturation 99.3 % (95-100); ABG PCO2 33.8 MM HG (35-48); ABG PH 7.354 (7.35-7.45); ABG TCO2 17.8 MMOL/L (23-27); Glucose Heart Surgery 96 MG/DL (74-106); Hematocrit Heart Surgery 23.2 PERCENT (42-52); Hemoglobin Heart Surgery 7.4 G/DL (14.0-18.0); Potassium Heart/CVR 4.7 MMOL/L (3.5-5.1)
[2019-11-29 22:10] LABS: Hematocrit Heart Surgery 23.4 PERCENT (42-52); Hemoglobin Heart Surgery 7.5 G/DL (14.0-18.0); PCO2 Patient Temp Venous 42.5 MM HG; PH Patient Temp Venous 7.296; PO2 Patient Temp Venous 38.3 MM HG; Potassium Heart/CVR 4.9 MMOL/L (3.5-5.1); VBG Base Excess -5.4 MEQ/L (0-4); VBG HCO3 19.5 MEQ/L (24-28); VBG Oxygen Saturation 65.4 %; VBG PCO2 42.5 MMHG (41-51); VBG PH 7.296; VBG PO2 38.3 MMHG (17-40)
[2019-11-29] MEDS ORDERED: SODIUM BICARBONATE 50 MEQ/50 ML VIAL IV STA (22:32)
[2019-11-29] MEDS: MIDAZOLAM 2 MG/2 ML VIAL IV PRN (23:10)
[2019-11-29] MEDS: PHENYLEPHRINE INJ 160 MG in SODIUM CHLORIDE 0.9% 234 ML IV PRN (23:40)
[2019-11-30] MEDS: MIDAZOLAM 2 MG/2 ML VIAL IV PRN ×3 (01:15→19:12)
[2019-11-30 02:36] LABS: ABG Base Excess -10.6 MMOL/L (-2.5-2.5); ABG Oxygen Saturation 95.2 % (95-100); ABG PH 7.245 (7.35-7.45); ABG PO2 84.1 MM HG (80-95); ABG TCO2 14.8 MMOL/L (23-27); Glucose Heart Surgery 103 MG/DL (74-106); Glucose Heart Surgery 77 MG/DL (74-106); Hematocrit Heart Surgery 32.1 PERCENT (42-52); Hemoglobin Heart Surgery 10.4 G/DL (14.0-18.0); Hemoglobin Heart Surgery 10.6 G/DL (14.0-18.0); Sodium Heart/CVR 140 MMOL/L (135-145); VBG Base Excess -8.7 MEQ/L (0-4); VBG HCO3 19.3 MEQ/L (24-28); VBG Oxygen Saturation 36.2 %; VBG PCO2 51.2 MMHG (41-51); VBG PH 7.194; VBG PO2 26.2 MMHG (17-40)
[2019-11-30 02:42] LABS: Potassium Heart/CVR 6.1 MMOL/L (3.5-5.1); Potassium Heart/CVR 6.3 MMOL/L (3.5-5.1)
[2019-11-30] MEDS ORDERED: SODIUM BICARBONATE 50 MEQ/50 ML VIAL IV ONE ×4 (02:55→20:03)
[2019-11-30] MEDS ORDERED: CALCIUM GLUCONATE 1,000 MG in SODIUM CHLORIDE 0.9% 100 ML IV ONE ×2 (02:56→20:02)
[2019-11-30] MEDS ORDERED: INSULIN REGULAR 100 UNIT/ML IV ONE ×2 (02:56→20:03)
[2019-11-30] MEDS ORDERED: CALCIUM GLUCONATE 1,000 MG/10 ML VIAL IV ONE ×2 (03:02→20:10)
[2019-11-30] MEDS ORDERED: SODIUM CHLORIDE 0.9% 100 ML IV ONE (03:02)
[2019-11-30] MEDS: DEXTROSE 10% 250 ML BAG IV PRN ×3 (03:10→20:18)
[2019-11-30 03:39] LABS: ABG Base Excess -5.6 MMOL/L (-2.5-2.5); ABG HCO3 19.8 MMOL/L (20-26); ABG Oxygen Saturation 99.5 % (95-100); ABG PCO2 35.8 MM HG (35-48); ABG PH 7.344 (7.35-7.45); ABG TCO2 18.1 MMOL/L (23-27); Glucose Heart Surgery 211 MG/DL (74-106); Hematocrit Heart Surgery 26.4 PERCENT (42-52); Hemoglobin Heart Surgery 8.5 G/DL (14.0-18.0); Potassium Heart/CVR 4.2 MMOL/L (3.5-5.1)
[2019-11-30 04:04] LABS: Albumin 1.8 G/DL (3.4-5.0); Bilirubin,Total 0.9 MG/DL (0.2-1.0); Calcium 6.7 MG/DL (8.5-10.1); Osmolality,Calculated 324.3 MOS/KG (273-304); Total Protein 3.2 G/DL (6.4-8.3)
[2019-11-30] MEDS: DEXMEDETOMIDINE 400 MCG in SODIUM CHLORIDE 0.9% 96 ML IV PRN ×3 (04:08→18:10)
[2019-11-30 04:17] LABS: Hemoglobin 8.2 GM/DL (14.0-18.0); Immature Granulocytes % 0.6 %; Immature Granulocytes Absolute 0.03 #; Lymphocytes # 0.3 10*3/uL (1.4-4.0); Mean Corpuscular HGB Conc 34.2 GM/DL (32-36); Mean Corpuscular Volume 86.6 FL (87-102); Mean Platelet Volume 12.1 FL (9.6-12.0); Monocytes % 1.2 % (1.7-12.7); NRBC # 0.08 10*3/uL; Neutrophils % 91.2 % (38.7-73.9); Red Blood Count 2.77 MC/CUMM (3.8-5.5); Red Cell Distribution Width 15.3 % (9.3-17.3); White Blood Count 4.9 T/CUMM (4-12)
[2019-11-30 04:24] LABS: Bilirubin,Direct 0.45 MG/DL (0.0-0.20); CKMB % 8.8 %
[2019-11-30 05:00] LABS: Troponin I 19.2 NG/ML (0.00-0.045)
[2019-11-30 05:12] LABS: Platelet Count 42 T/CUMM (130-400)
[2019-11-30 05:50] LABS: Band Neutrophils 7 % (0-10); Lymphocytes 5 % (20-55); Metamyelocytes 1 %; Nucleated Red Blood Cells 1 (0-5); Segmented Neutrophils 87 % (50-85); Total Cells Counted 100
[2019-11-30 05:51] LABS: Platelet Estimate Decreased
[2019-11-30 05:52] LABS: Acanthocytes 1+; Ovalocytes Few
[2019-11-30 07:00] LABS: Troponin I 21.5 NG/ML (0.00-0.045)
[2019-11-30 07:00] LABS: Troponin I 14.6 NG/ML (0.00-0.045)
[2019-11-30] MEDS ORDERED: fentaNYL INJ 1,250 MCG in SODIUM CHLORIDE 0.9% 225 ML IV PRN (08:36)
[2019-11-30 08:40] LABS: ABG Base Excess -5.5 MMOL/L (-2.5-2.5); ABG HCO3 19.9 MMOL/L (20-26); ABG Oxygen Saturation 99.6 % (95-100); ABG PCO2 28.4 MM HG (35-48); ABG PH 7.411 (7.35-7.45); ABG TCO2 16.3 MMOL/L (23-27); Glucose Heart Surgery 115 MG/DL (74-106); Hematocrit Heart Surgery 31.9 PERCENT (42-52); Hemoglobin Heart Surgery 10.3 G/DL (14.0-18.0); Potassium Heart/CVR 5.1 MMOL/L (3.5-5.1)
[2019-11-30] MEDS: CHLORHEXIDINE 0.12% ORAL RINSE 60 ML BOTTLE SWISH/SPIT SCH ×3 (09:00→21:24)
[2019-11-30] MEDS: PIPERACILLIN/TAZOBACTAM 3,375 MG in SODIUM CHLORIDE 0.9% 100 ML IV SCH ×2 (09:15→19:28)
[2019-11-30] MEDS: PANTOPRAZOLE 40 MG VIAL IV SCH (09:15)
[2019-11-30] MEDS ORDERED: SODIUM POLYSTYRENE SULFATE 15 GM/60 ML BOTTLE RECTAL PRN (12:42)
[2019-11-30 13:08] LABS: ABG Base Excess -7.5 MMOL/L (-2.5-2.5); ABG HCO3 18.3 MMOL/L (20-26); ABG Oxygen Saturation 99.6 % (95-100); ABG PCO2 30.2 MM HG (35-48); ABG PH 7.359 (7.35-7.45); ABG TCO2 15.7 MMOL/L (23-27); Glucose Heart Surgery 149 MG/DL (74-106); Hematocrit Heart Surgery 28.3 PERCENT (42-52); Hemoglobin Heart Surgery 9.1 G/DL (14.0-18.0); Potassium Heart/CVR 5.6 MMOL/L (3.5-5.1)
[2019-11-30] MEDS: INSULIN REGULAR DRIP 100 ML IV SCH (13:30)
[2019-11-30] MEDS: DOBUTamine 500 MG/250 ML PREMIX IV SCH (16:00)
[2019-11-30] MEDS: MORPHINE 4 MG/1 ML VIAL IV PRN (16:10)
[2019-11-30] MEDS: SODIUM BICARB INJ 150 MEQ in DEXTROSE 5% 850 ML IV SCH (18:20)
[2019-11-30 18:42] LABS: ABG Base Excess -9.2 MMOL/L (-2.5-2.5); ABG HCO3 13.1 MMOL/L (20-26); ABG Oxygen Saturation 98.4 % (95-100); ABG PH 7.442 (7.35-7.45); ABG PO2 308.9 MM HG (80-95); ABG TCO2 13.7 MMOL/L (23-27); Glucose Heart Surgery 57 MG/DL (74-106)
[2019-11-30 18:44] LABS: ABG PCO2 19.7 MM HG (35-48); Potassium Heart/CVR 6.7 MMOL/L (3.5-5.1)
[2019-11-30] MEDS: SODIUM POLYSTYRENE SULFATE 15 GM/60 ML BOTTLE PO PRN (19:27)
[2019-11-30 20:27] LABS: CKMB % 7.2 %
[2019-11-30 20:29] LABS: Troponin I 35.2 NG/ML (0.00-0.045)
[2019-11-30] MEDS: PHENYLEPHRINE INJ 160 MG in SODIUM CHLORIDE 0.9% 234 ML IV PRN (21:13)
[2019-11-30] MEDS: INSULIN REGULAR 100 UNIT/ML SUBCUT SCH (21:14)
[2019-11-30 22:12] LABS: Hematocrit Heart Surgery 27.9 PERCENT (42-52); PCO2 Patient Temp Venous 29.9 MM HG; PH Patient Temp Venous 7.355; PO2 Patient Temp Venous 48.9 MM HG; Potassium Heart/CVR 5.5 MMOL/L (3.5-5.1); VBG Base Excess -7.9 MEQ/L (0-4); VBG HCO3 17.7 MEQ/L (24-28); VBG Oxygen Saturation 76.1 %; VBG PCO2 29.9 MMHG (41-51); VBG PH 7.355; VBG PO2 48.9 MMHG (17-40)
[2019-11-30 22:40] LABS: Hematocrit Heart Surgery 28.1 PERCENT (42-52); Hemoglobin Heart Surgery 9.1 G/DL (14.0-18.0); PCO2 Patient Temp Venous 34.5 MM HG; PH Patient Temp Venous 7.323; PO2 Patient Temp Venous 33.5 MM HG; Potassium Heart/CVR 5.5 MMOL/L (3.5-5.1); VBG Base Excess -7.4 MEQ/L (0-4); VBG HCO3 17.7 MEQ/L (24-28); VBG Oxygen Saturation 47.9 %; VBG PCO2 34.5 MMHG (41-51); VBG PH 7.323; VBG PO2 33.5 MMHG (17-40)
[2019-12-01 00:25] LABS: ABG Base Excess -7.6 MMOL/L (-2.5-2.5); ABG HCO3 18.2 MMOL/L (20-26); ABG Oxygen Saturation 98.8 % (95-100); ABG PCO2 33.3 MM HG (35-48); ABG TCO2 16.3 MMOL/L (23-27); Glucose Heart Surgery 106 MG/DL (74-106); Hematocrit Heart Surgery 28.1 PERCENT (42-52); Hemoglobin Heart Surgery 9.1 G/DL (14.0-18.0); Potassium Heart/CVR 5.6 MMOL/L (3.5-5.1)
[2019-12-01] MEDS: INSULIN REGULAR 100 UNIT/ML SUBCUT SCH ×6 (00:54→20:38)
[2019-12-01 04:06] LABS: ABG Base Excess -5.4 MMOL/L (-2.5-2.5); ABG Oxygen Saturation 99.2 % (95-100); ABG PCO2 34.1 MM HG (35-48); ABG PH 7.363 (7.35-7.45)
[2019-12-01 04:25] LABS: Basophils % 0.1 % (0.0-0.8); Hematocrit 24.2 VOL% (42.0-52.0); Hemoglobin 8.3 GM/DL (14.0-18.0); Immature Granulocytes % 0.8 %; Immature Granulocytes Absolute 0.12 #; Lymphocytes # 0.4 10*3/uL (1.4-4.0); Lymphocytes % 2.7 % (21.2-54.2); Mean Corpuscular HGB Conc 34.3 GM/DL (32-36); Mean Corpuscular Volume 85.8 FL (87-102); Monocytes % 6.3 % (1.7-12.7); NRBC # 0.29 10*3/uL; Neutrophils % 90.1 % (38.7-73.9); Red Blood Count 2.82 MC/CUMM (3.8-5.5); White Blood Count 15.7 T/CUMM (4-12)
[2019-12-01 04:31] LABS: Platelet Count 32 T/CUMM (130-400)
[2019-12-01 04:36] LABS: CKMB % 5.2 %; Troponin I 35.8 NG/ML (0.00-0.045)
[2019-12-01 05:33] LABS: Albumin 2.4 G/DL (3.4-5.0); Bilirubin,Direct 0.459 MG/DL (0.0-0.20); Bilirubin,Total 1.07 MG/DL (0.2-1.0); Calcium 8.5 MG/DL (8.5-10.1)
[2019-12-01 05:42] LABS: Lymphocytes 5 % (20-55); Nucleated Red Blood Cells 1 (0-5); Segmented Neutrophils 88 % (50-85)
[2019-12-01 05:43] LABS: Hypochromasia 1+; Platelet Estimate Decreased
[2019-12-01 05:44] LABS: Total Cells Counted 100
[2019-12-01] MEDS ORDERED: methylPREDNISolone SOD SUC 125 MG/2 ML VIAL IV ONE (06:00)
[2019-12-01] MEDS: PANTOPRAZOLE 40 MG VIAL IV SCH (07:35)
[2019-12-01] MEDS: PIPERACILLIN/TAZOBACTAM 3,375 MG in SODIUM CHLORIDE 0.9% 100 ML IV SCH ×2 (07:40→20:36)
[2019-12-01] MEDS: CHLORHEXIDINE 0.12% ORAL RINSE 60 ML BOTTLE SWISH/SPIT SCH ×2 (08:15→21:39)
[2019-12-01 16:12] LABS: ABG Base Excess 0.7 MMOL/L (-2.5-2.5); ABG Oxygen Saturation 97.7 % (95-100); ABG PCO2 32.8 MM HG (35-48); ABG PH 7.482 (7.35-7.45); ABG PO2 141.2 MM HG (80-95); Glucose Heart Surgery 147 MG/DL (74-106); Hemoglobin Heart Surgery 8.6 G/DL (14.0-18.0); Potassium Heart/CVR 5.1 MMOL/L (3.5-5.1)
[2019-12-01 16:13] LABS: VBG Base Excess 1.8 MEQ/L (0-4); VBG HCO3 25.3 MEQ/L (24-28); VBG Oxygen Saturation 51.6 %; VBG PCO2 41.6 MMHG (41-51); VBG PH 7.413; VBG PO2 33.3 MMHG (17-40)
[2019-12-01] MEDS: SODIUM CHLORIDE 0.45% 1,000 ML IV SCH (16:40)
[2019-12-01] MEDS: ALBUMIN 5% 12.5 GM in PREMIX 1 EACH IV PRN (17:25)
[2019-12-01] MEDS: methylPREDNISolone SOD SUC 125 MG/2 ML VIAL IV SCH (17:25)
[2019-12-01 21:42] LABS: ABG Base Excess 2.3 MMOL/L (-2.5-2.5); ABG HCO3 26.5 MMOL/L (20-26); ABG Oxygen Saturation 99.4 % (95-100); ABG PCO2 34.9 MM HG (35-48); ABG PH 7.477 (7.35-7.45); ABG TCO2 24.1 MMOL/L (23-27); Glucose Heart Surgery 140 MG/DL (74-106); Glucose Heart Surgery 174 MG/DL (74-106); Hematocrit Heart Surgery 23.4 PERCENT (42-52); Hemoglobin Heart Surgery 7.5 G/DL (14.0-18.0); Hemoglobin Heart Surgery 7.8 G/DL (14.0-18.0); Potassium Heart/CVR 4.9 MMOL/L (3.5-5.1); Sodium Heart/CVR 138 MMOL/L (135-145); VBG Base Excess 2.6 MEQ/L (0-4); VBG Oxygen Saturation 46.2 %; VBG PCO2 40.5 MMHG (41-51); VBG PH 7.441; VBG PO2 31.6 MMHG (17-40)
[2019-12-02] MEDS: INSULIN REGULAR 100 UNIT/ML SUBCUT SCH ×6 (00:24→19:40)
[2019-12-02 04:35] LABS: ABG Base Excess 3.5 MMOL/L (-2.5-2.5); ABG HCO3 26.3 MMOL/L (20-26); ABG Oxygen Saturation 97.4 % (95-100); ABG PCO2 32.3 MM HG (35-48); ABG PH 7.529 (7.35-7.45); ABG PO2 128.3 MM HG (80-95); ABG TCO2 27.3 MMOL/L (23-27); Glucose Heart Surgery 127 MG/DL (74-106); Hemoglobin Heart Surgery 7.3 G/DL (14.0-18.0); Potassium Heart/CVR 5.2 MMOL/L (3.5-5.1)
[2019-12-02 04:53] LABS: Basophils % 0.1 % (0.0-0.8); Hematocrit 20.3 VOL% (42.0-52.0); Immature Granulocytes % 0.6 %; Immature Granulocytes Absolute 0.08 #; Lymphocytes # 0.4 10*3/uL (1.4-4.0); Mean Corpuscular HGB Conc 34.5 GM/DL (32-36); Mean Corpuscular Volume 86.8 FL (87-102); Monocytes % 4.8 % (1.7-12.7); NRBC # 0.62 10*3/uL; Neutrophils % 91.5 % (38.7-73.9); Red Blood Count 2.34 MC/CUMM (3.8-5.5); Red Cell Distribution Width 15.6 % (9.3-17.3); White Blood Count 12.4 T/CUMM (4-12)
[2019-12-02 05:07] LABS: CKMB % 4.2 %
[2019-12-02 05:18] LABS: Platelet Count 14 T/CUMM (130-400)
[2019-12-02 05:19] LABS: Albumin 2.5 G/DL (3.4-5.0); Bilirubin,Total 1.1 MG/DL (0.2-1.0); Calcium 8.8 MG/DL (8.5-10.1); Osmolality,Calculated 314.1 MOS/KG (273-304); Total Protein 4.2 G/DL (6.4-8.3)
[2019-12-02 05:27] LABS: Troponin I 15.5 NG/ML (0.00-0.045)
[2019-12-02] MEDS: methylPREDNISolone SOD SUC 125 MG/2 ML VIAL IV SCH ×3 (05:39→20:48)
[2019-12-02 08:02] LABS: Anisocytosis 1+; Band Neutrophils 3 % (0-10); Hypochromasia 2+; Lymphocytes 5 % (20-55); Macrocytosis 1+; Nucleated Red Blood Cells 5 (0-5); Platelet Estimate Decreased; Segmented Neutrophils 86 % (50-85); Total Cells Counted 100
[2019-12-02] MEDS: CHLORHEXIDINE 0.12% ORAL RINSE 60 ML BOTTLE SWISH/SPIT SCH ×2 (09:58→20:52)
[2019-12-02] MEDS: PIPERACILLIN/TAZOBACTAM 3,375 MG in SODIUM CHLORIDE 0.9% 100 ML IV SCH ×2 (10:02→20:51)
[2019-12-02] MEDS: PANTOPRAZOLE 40 MG VIAL IV SCH ×4 (10:03→20:51)
[2019-12-02] MEDS ORDERED: METOPROLOL TARTRATE 5 MG/5 ML VIAL IV ONE (10:37)
[2019-12-02] MEDS: NITROGLYCERIN DRIP 50 MG/250 ML BOTTLE IV PRN ×3 (11:18→20:15)
[2019-12-02] MEDS ORDERED: NITROPRUSSIDE 50 MG/2 ML VIAL ONE (12:13)
[2019-12-02] MEDS: NITROPRUSSIDE 100 MG in DEXTROSE 5% 250 ML IV PRN ×2 (12:31→22:33)
[2019-12-02] MEDS: cloNIDine 0.1 MG TABLET PO SCH ×2 (12:33→20:51)
[2019-12-02] MEDS: MIDAZOLAM 2 MG/2 ML VIAL IV PRN (14:45)
[2019-12-02] MEDS: SODIUM CHLORIDE 0.45% 1,000 ML IV SCH (18:20)
[2019-12-02 18:44] LABS: Basophils % 0.1 % (0.0-0.8); Hematocrit 23.2 VOL% (42.0-52.0); Hemoglobin 7.8 GM/DL (14.0-18.0); Immature Granulocytes % 1.4 %; Lymphocytes # 0.4 10*3/uL (1.4-4.0); Lymphocytes % 2.5 % (21.2-54.2); Mean Corpuscular HGB Conc 33.6 GM/DL (32-36); Mean Corpuscular Volume 85.9 FL (87-102); Mean Platelet Volume 10.3 FL (9.6-12.0); Monocytes % 3.9 % (1.7-12.7); NRBC # 0.67 10*3/uL; Neutrophils % 92.1 % (38.7-73.9); White Blood Count 14.5 T/CUMM (4-12)
[2019-12-02 18:46] LABS: Platelet Count 34 T/CUMM (130-400)
[2019-12-02 19:07] LABS: Lymphocytes 5 % (20-55); Nucleated Red Blood Cells 5 (0-5); Platelet Estimate Decreased; Segmented Neutrophils 94 % (50-85); Total Cells Counted 100
[2019-12-02 19:08] LABS: Hypochromasia Slight; Microcytosis Slight
[2019-12-02] MEDS ORDERED: SODIUM CHLORIDE 0.9% 1,000 ML IV PRN (19:30)
[2019-12-02] MEDS: LABETALOL 100 MG TABLET PO SCH (20:51)
[2019-12-03] MEDS: INSULIN REGULAR 100 UNIT/ML SUBCUT SCH ×6 (00:10→21:12)
[2019-12-03 00:13] LABS: ABG Base Excess 1.9 MMOL/L (-2.5-2.5); ABG HCO3 25.5 MMOL/L (20-26); ABG Oxygen Saturation 97.1 % (95-100); ABG PCO2 36.3 MM HG (35-48); ABG PH 7.465 (7.35-7.45); ABG PO2 113.8 MM HG (80-95); ABG TCO2 26.6 MMOL/L (23-27); Glucose Heart Surgery 112 MG/DL (74-106); Hemoglobin Heart Surgery 9.9 G/DL (14.0-18.0); Potassium Heart/CVR 4.8 MMOL/L (3.5-5.1)
[2019-12-03] MEDS: MIDAZOLAM 2 MG/2 ML VIAL IV PRN (00:15)
[2019-12-03] MEDS ORDERED: SODIUM CHLORIDE 0.9% 1,000 ML IV PRN (00:28)
[2019-12-03] MEDS: NITROGLYCERIN DRIP 50 MG/250 ML BOTTLE IV PRN (03:44)
[2019-12-03 05:01] LABS: ABG Base Excess 2.3 MMOL/L (-2.5-2.5); ABG HCO3 26.4 MMOL/L (20-26); ABG Oxygen Saturation 98.7 % (95-100); ABG PCO2 37.8 MM HG (35-48); ABG PH 7.449 (7.35-7.45); ABG TCO2 23.5 MMOL/L (23-27); Basophils % 0.2 % (0.0-0.8); Hematocrit 30.4 VOL% (42.0-52.0); Hemoglobin 10.5 GM/DL (14.0-18.0); Immature Granulocytes % 1.7 %; Immature Granulocytes Absolute 0.28 #; Lymphocytes # 0.3 10*3/uL (1.4-4.0); Lymphocytes % 1.6 % (21.2-54.2); Mean Corpuscular HGB Conc 34.5 GM/DL (32-36); Mean Corpuscular Volume 85.2 FL (87-102); Monocytes % 4.1 % (1.7-12.7); Neutrophils % 92.4 % (38.7-73.9); Red Blood Count 3.57 MC/CUMM (3.8-5.5); Red Cell Distribution Width 15.2 % (9.3-17.3); White Blood Count 16.1 T/CUMM (4-12)
[2019-12-03 05:12] LABS: Platelet Count 19 T/CUMM (130-400)
[2019-12-03 05:33] LABS: Albumin 2.6 G/DL (3.4-5.0); Bilirubin,Total 1.4 MG/DL (0.2-1.0); CKMB % 5.2 %; Calcium 9.2 MG/DL (8.5-10.1); Osmolality,Calculated 310.7 MOS/KG (273-304); Total Protein 4.5 G/DL (6.4-8.3); Troponin I 9.9 NG/ML (0.00-0.045)
[2019-12-03 05:45] LABS: Hypochromasia 2+; Lymphocytes 4 % (20-55); Nucleated Red Blood Cells 6 (0-5); Segmented Neutrophils 94 % (50-85); Total Cells Counted 100
[2019-12-03 05:46] LABS: Microcytosis 1+; Pappenheimer Bodies Slight; Platelet Estimate Decreased; Polychromasia Slight
[2019-12-03] MEDS ORDERED: NITROPRUSSIDE 50 MG/2 ML VIAL ONE (08:11)
[2019-12-03] MEDS: methylPREDNISolone SOD SUC 125 MG/2 ML VIAL IV SCH ×2 (08:28→21:09)
[2019-12-03] MEDS: PANTOPRAZOLE 40 MG VIAL IV SCH ×3 (08:28→21:10)
[2019-12-03] MEDS: cloNIDine 0.1 MG TABLET PO SCH ×3 (08:28→21:10)
[2019-12-03] MEDS: CHLORHEXIDINE 0.12% ORAL RINSE 60 ML BOTTLE SWISH/SPIT SCH ×2 (08:29→21:11)
[2019-12-03] MEDS: LABETALOL 100 MG TABLET PO SCH ×2 (08:29→21:10)
[2019-12-03] MEDS: NITROPRUSSIDE 100 MG in DEXTROSE 5% 250 ML IV PRN ×2 (08:30→22:20)
[2019-12-03 11:53] LABS: Basophils % 0.2 % (0.0-0.8); Hematocrit 30.4 VOL% (42.0-52.0); Hemoglobin 10.5 GM/DL (14.0-18.0); Immature Granulocytes % 1.7 %; Immature Granulocytes Absolute 0.26 #; Lymphocytes # 0.3 10*3/uL (1.4-4.0); Lymphocytes % 2.2 % (21.2-54.2); Mean Corpuscular HGB Conc 34.5 GM/DL (32-36); Mean Corpuscular Volume 84.9 FL (87-102); Monocytes % 4.8 % (1.7-12.7); NRBC # 1.05 10*3/uL; Neutrophils % 91.1 % (38.7-73.9); Red Blood Count 3.58 MC/CUMM (3.8-5.5); Red Cell Distribution Width 15.4 % (9.3-17.3); White Blood Count 15.1 T/CUMM (4-12)
[2019-12-03 11:58] LABS: Platelet Count 16 T/CUMM (130-400)
[2019-12-03 12:14] LABS: Anisocytosis Slight; Lymphocytes 1 % (20-55); Macrocytosis Slight; Microcytosis Slight; Nucleated Red Blood Cells 6 (0-5); Platelet Estimate Decreased; Polychromasia 1+; Segmented Neutrophils 97 % (50-85); Total Cells Counted 100
[2019-12-03 12:16] LABS: Basophilic Stippling Slight
[2019-12-03] MEDS: MENTHOL/ZINC OXIDE OINT 71 GM JAR TOP SCH ×2 (14:31→21:11)
[2019-12-03] MEDS ORDERED: NITROGLYCERIN 2% OINT 1 INCH/GM PACK TOP ONE (16:02)
[2019-12-03] MEDS: SODIUM CHLORIDE 0.45% 1,000 ML IV SCH (17:39)
[2019-12-03 18:09] LABS: Basophils % 0.2 % (0.0-0.8); Hematocrit 31.3 VOL% (42.0-52.0); Hemoglobin 10.8 GM/DL (14.0-18.0); Immature Granulocytes % 2.8 %; Immature Granulocytes Absolute 0.44 #; Lymphocytes # 0.3 10*3/uL (1.4-4.0); Lymphocytes % 2.1 % (21.2-54.2); Mean Corpuscular HGB Conc 34.5 GM/DL (32-36); Mean Corpuscular Volume 85.1 FL (87-102); Monocytes % 4.1 % (1.7-12.7); NRBC # 1.13 10*3/uL; Neutrophils % 90.8 % (38.7-73.9); Red Blood Count 3.68 MC/CUMM (3.8-5.5); Red Cell Distribution Width 15.7 % (9.3-17.3); White Blood Count 15.8 T/CUMM (4-12)
[2019-12-03 18:13] LABS: Platelet Count 11 T/CUMM (130-400)
[2019-12-03 18:38] LABS: Band Neutrophils 6 % (0-10); Lymphocytes 1 % (20-55); Nucleated Red Blood Cells 14 (0-5); Segmented Neutrophils 90 % (50-85); Total Cells Counted 100
[2019-12-03 18:39] LABS: Anisocytosis Slight; Burr Cells 1+; Microcytosis Slight; Platelet Estimate Decreased; Poikilocytosis 1+; Polychromasia 1+; Schistocytes Slight
[2019-12-03 20:31] LABS: VBG Base Excess 1.4 MEQ/L (0-4); VBG HCO3 25.6 MEQ/L (24-28); VBG Oxygen Saturation 94.7 %; VBG PCO2 35.1 MMHG (41-51); VBG PH 7.458; VBG PO2 72.2 MMHG (17-40)
[2019-12-04] MEDS: INSULIN REGULAR 100 UNIT/ML SUBCUT SCH ×6 (00:30→19:58)
[2019-12-04 04:11] LABS: Allen Test Positive; Pt O2 Delivery Device Ventilator
[2019-12-04 04:13] LABS: ABG Base Excess 0.6 MMOL/L (-2.5-2.5); ABG PCO2 36.1 MM HG (35-48); ABG PH 7.439 (7.35-7.45); ABG TCO2 21.9 MMOL/L (23-27)
[2019-12-04 04:48] LABS: Basophils # 0.1 10*3/uL (0.0-0.2); Basophils % 0.3 % (0.0-0.8); Hematocrit 30.6 VOL% (42.0-52.0); Hemoglobin 10.5 GM/DL (14.0-18.0); Immature Granulocytes % 3.4 %; Immature Granulocytes Absolute 0.56 #; Lymphocytes # 0.3 10*3/uL (1.4-4.0); Lymphocytes % 1.6 % (21.2-54.2); Mean Corpuscular HGB Conc 34.3 GM/DL (32-36); Monocytes % 4.5 % (1.7-12.7); NRBC # 1.54 10*3/uL; Neutrophils % 90.2 % (38.7-73.9); Red Blood Count 3.56 MC/CUMM (3.8-5.5); Red Cell Distribution Width 15.8 % (9.3-17.3); VBG Base Excess 0.2 MEQ/L (0-4); VBG HCO3 23.4 MEQ/L (24-28); VBG Oxygen Saturation 93.4 %; VBG PCO2 33.1 MMHG (41-51); VBG PH 7.468; VBG PO2 74.3 MMHG (17-40); White Blood Count 16.6 T/CUMM (4-12)
[2019-12-04 04:50] LABS: Platelet Count 15 T/CUMM (130-400)
[2019-12-04 05:07] LABS: Hypochromasia 1+; Lymphocytes 3 % (20-55); Nucleated Red Blood Cells 11 (0-5); Platelet Estimate Decreased; Segmented Neutrophils 95 % (50-85); Total Cells Counted 100
[2019-12-04 05:08] LABS: Microcytosis Slight
[2019-12-04 05:13] LABS: Albumin 2.7 G/DL (3.4-5.0); Bilirubin,Total 1.3 MG/DL (0.2-1.0); Calcium 9.1 MG/DL (8.5-10.1); Total Protein 4.8 G/DL (6.4-8.3)
[2019-12-04] MEDS ORDERED: FAMOTIDINE 20 MG/2 ML VIAL IV SCH (09:00)
[2019-12-04] MEDS: cloNIDine 0.1 MG TABLET PO SCH ×3 (09:00→20:21)
[2019-12-04] MEDS: methylPREDNISolone SOD SUC 125 MG/2 ML VIAL IV SCH ×2 (09:00→20:21)
[2019-12-04] MEDS: MENTHOL/ZINC OXIDE OINT 71 GM JAR TOP SCH ×2 (09:00→20:22)
[2019-12-04] MEDS: FAMOTIDINE 20 MG/2 ML VIAL IV SCH (09:05)
[2019-12-04] MEDS: LABETALOL 100 MG TABLET PO SCH ×2 (09:12→20:21)
[2019-12-04] MEDS: CHLORHEXIDINE 0.12% ORAL RINSE 60 ML BOTTLE SWISH/SPIT SCH ×2 (09:50→20:22)
[2019-12-04] MEDS: MORPHINE 4 MG/1 ML VIAL IV PRN (10:00)
[2019-12-04] MEDS: cilostazoL 50 MG TABLET PO SCH ×2 (10:00→20:21)
[2019-12-04] MEDS: NITROGLYCERIN DRIP 50 MG/250 ML BOTTLE IV PRN (14:42)
[2019-12-04] MEDS: SODIUM CHLORIDE 0.45% 1,000 ML IV SCH (17:48)
[2019-12-04 20:40] LABS: VBG Base Excess 1.6 MEQ/L (0-4); VBG HCO3 25.7 MEQ/L (24-28); VBG Oxygen Saturation 89.7 %; VBG PCO2 36.6 MMHG (41-51); VBG PH 7.449; VBG PO2 59.6 MMHG (17-40)
[2019-12-05] MEDS: INSULIN REGULAR 100 UNIT/ML SUBCUT SCH ×6 (01:39→20:36)
[2019-12-05] MEDS: MORPHINE 4 MG/1 ML VIAL IV PRN (04:33)
[2019-12-05 04:34] LABS: Allen Test Positive; Pt O2 Delivery Device Ventilator
[2019-12-05 04:36] LABS: ABG Base Excess 0.7 MMOL/L (-2.5-2.5); ABG Oxygen Saturation 98.7 % (95-100); ABG PH 7.394 (7.35-7.45)
[2019-12-05 04:49] LABS: Basophils # 0.1 10*3/uL (0.0-0.2); Basophils % 0.3 % (0.0-0.8); Hematocrit 31.6 VOL% (42.0-52.0); Hemoglobin 10.7 GM/DL (14.0-18.0); Immature Granulocytes % 3.2 %; Lymphocytes # 0.5 10*3/uL (1.4-4.0); Lymphocytes % 2.5 % (21.2-54.2); Mean Corpuscular HGB Conc 33.9 GM/DL (32-36); Mean Corpuscular Volume 86.6 FL (87-102); Monocytes % 4.2 % (1.7-12.7); NRBC # 0.55 10*3/uL; Neutrophils % 89.8 % (38.7-73.9); Red Blood Count 3.65 MC/CUMM (3.8-5.5); Red Cell Distribution Width 15.3 % (9.3-17.3); White Blood Count 18.8 T/CUMM (4-12)
[2019-12-05 04:51] LABS: Platelet Count 19 T/CUMM (130-400)
[2019-12-05 05:08] LABS: INR 1.3; PT Patient Result 13.3 SECS (9.8-11.9); Partial Thromboplastin Time 34.8 SECS (23.9-33.8)
[2019-12-05 05:15] LABS: Albumin 2.5 G/DL (3.4-5.0); Bilirubin,Total 2.4 MG/DL (0.2-1.0); Calcium 9.3 MG/DL (8.5-10.1); Osmolality,Calculated 299.2 MOS/KG (273-304); Total Protein 5.1 G/DL (6.4-8.3)
[2019-12-05 05:20] LABS: Band Neutrophils 2 % (0-10); Lymphocytes 2 % (20-55); Nucleated Red Blood Cells 3 (0-5); Platelet Estimate Decreased; Segmented Neutrophils 92 % (50-85); Total Cells Counted 100
[2019-12-05 05:21] LABS: Hypochromasia Slight; Macrocytosis Slight; Ovalocytes Slight; Polychromasia Slight
[2019-12-05 07:31] LABS: ABG Base Excess 0.3 MMOL/L (-2.5-2.5); ABG HCO3 24.7 MMOL/L (20-26); ABG Oxygen Saturation 98.7 % (95-100); ABG PCO2 42.7 MM HG (35-48); ABG PH 7.384 (7.35-7.45); ABG TCO2 22.8 MMOL/L (23-27)
[2019-12-05] MEDS: MENTHOL/ZINC OXIDE OINT 71 GM JAR TOP SCH ×2 (09:26→20:59)
[2019-12-05] MEDS: cloNIDine 0.1 MG TABLET PO SCH ×2 (09:26→15:50)
[2019-12-05] MEDS: CHLORHEXIDINE 0.12% ORAL RINSE 60 ML BOTTLE SWISH/SPIT SCH ×2 (09:26→20:59)
[2019-12-05] MEDS: LABETALOL 200 MG TABLET PO SCH ×2 (09:26→20:46)
[2019-12-05] MEDS: cilostazoL 50 MG TABLET PO SCH ×2 (09:26→20:46)
[2019-12-05] MEDS: methylPREDNISolone SOD SUC 125 MG/2 ML VIAL IV SCH ×2 (09:27→20:47)
[2019-12-05] MEDS: FAMOTIDINE 20 MG/2 ML VIAL IV SCH (09:35)
[2019-12-05] MEDS: NITROGLYCERIN DRIP 50 MG/250 ML BOTTLE IV PRN ×2 (10:54→18:51)
[2019-12-05] MEDS: NITROPRUSSIDE 100 MG in DEXTROSE 5% 250 ML IV PRN (19:18)
[2019-12-05] MEDS: SODIUM CHLORIDE 0.45% 1,000 ML IV SCH (19:52)
[2019-12-06] MEDS: INSULIN REGULAR 100 UNIT/ML SUBCUT SCH ×7 (00:15→20:44)
[2019-12-06] MEDS: NITROGLYCERIN DRIP 50 MG/250 ML BOTTLE IV PRN ×3 (00:25→12:55)
[2019-12-06 05:09] LABS: Basophils % 0.2 % (0.0-0.8); Hematocrit 29.2 VOL% (42.0-52.0); Hemoglobin 9.7 GM/DL (14.0-18.0); Immature Granulocytes % 2.5 %; Immature Granulocytes Absolute 0.43 #; Lymphocytes # 0.3 10*3/uL (1.4-4.0); Lymphocytes % 1.4 % (21.2-54.2); Mean Corpuscular HGB Conc 33.2 GM/DL (32-36); Mean Corpuscular Volume 88.5 FL (87-102); NRBC # 0.15 10*3/uL; Neutrophils % 92.9 % (38.7-73.9); Red Cell Distribution Width 15.3 % (9.3-17.3); White Blood Count 17.4 T/CUMM (4-12)
[2019-12-06 05:13] LABS: Platelet Count 22 T/CUMM (130-400)
[2019-12-06 05:32] LABS: Albumin 2.2 G/DL (3.4-5.0); Bilirubin,Total 1.2 MG/DL (0.2-1.0); Calcium 8.7 MG/DL (8.5-10.1); Osmolality,Calculated 306.5 MOS/KG (273-304); Total Protein 4.7 G/DL (6.4-8.3)
[2019-12-06 05:35] LABS: Hypochromasia 1+; Lymphocytes 5 % (20-55); Nucleated Red Blood Cells 1 (0-5); Platelet Estimate Decreased; Segmented Neutrophils 91 % (50-85); Total Cells Counted 100
[2019-12-06 05:36] LABS: Macrocytosis Slight; Polychromasia Slight
[2019-12-06] MEDS: MENTHOL/ZINC OXIDE OINT 71 GM JAR TOP SCH ×2 (10:22→20:28)
[2019-12-06] MEDS: CHLORHEXIDINE 0.12% ORAL RINSE 60 ML BOTTLE SWISH/SPIT SCH ×2 (10:22→20:28)
[2019-12-06] MEDS: cilostazoL 50 MG TABLET PO SCH ×2 (10:24→20:28)
[2019-12-06] MEDS: FAMOTIDINE 20 MG/2 ML VIAL IV SCH (10:24)
[2019-12-06] MEDS: LABETALOL 200 MG TABLET PO SCH ×2 (10:27→20:28)
[2019-12-06] MEDS: methylPREDNISolone SOD SUC 125 MG/2 ML VIAL IV SCH ×2 (10:28→20:28)
[2019-12-06 13:21] LABS: INR 1.2; PT Patient Result 13.1 SECS (9.8-11.9); Partial Thromboplastin Time 38.9 SECS (23.9-33.8)
[2019-12-07 05:00] LABS: Allen Test Positive
[2019-12-07 05:13] LABS: Basophils % 0.2 % (0.0-0.8); Hematocrit 29.9 VOL% (42.0-52.0); Hemoglobin 9.9 GM/DL (14.0-18.0); Immature Granulocytes % 1.4 %; Immature Granulocytes Absolute 0.26 #; Lymphocytes # 0.2 10*3/uL (1.4-4.0); Lymphocytes % 0.8 % (21.2-54.2); Mean Corpuscular HGB Conc 33.1 GM/DL (32-36); Mean Corpuscular Volume 88.5 FL (87-102); Monocytes % 2.7 % (1.7-12.7); NRBC # 0.05 10*3/uL; Neutrophils % 94.9 % (38.7-73.9); Red Blood Count 3.38 MC/CUMM (3.8-5.5); Red Cell Distribution Width 15.2 % (9.3-17.3); White Blood Count 18.2 T/CUMM (4-12)
[2019-12-07 05:24] LABS: ABG Base Excess -0.7 MMOL/L (-2.5-2.5); ABG HCO3 24.3 MMOL/L (20-26); ABG Oxygen Saturation 95.1 % (95-100); ABG PCO2 41.4 MM HG (35-48); ABG PH 7.387 (7.35-7.45); ABG PO2 85.4 MM HG (80-95); ABG TCO2 25.6 MMOL/L (23-27)
[2019-12-07 05:31] LABS: Albumin 2.3 G/DL (3.4-5.0); Bilirubin,Total 1.1 MG/DL (0.2-1.0); Calcium 8.4 MG/DL (8.5-10.1); Osmolality,Calculated 299.4 MOS/KG (273-304)
[2019-12-07 05:44] LABS: Platelet Count 26 T/CUMM (130-400)
[2019-12-07 05:47] LABS: Hypochromasia 1+; Lymphocytes 2 % (20-55); Ovalocytes Slight; Platelet Estimate Decreased; Segmented Neutrophils 95 % (50-85); Total Cells Counted 100
[2019-12-07 05:48] LABS: Macrocytosis Slight; Polychromasia Slight
[2019-12-07] MEDS: SODIUM CHLORIDE 0.45% 1,000 ML IV SCH (08:31)
[2019-12-07] MEDS: INSULIN REGULAR 100 UNIT/ML SUBCUT SCH ×4 (08:31→21:53)
[2019-12-07] MEDS: FAMOTIDINE 20 MG/2 ML VIAL IV SCH (09:00)
[2019-12-07] MEDS: methylPREDNISolone SOD SUC 125 MG/2 ML VIAL IV SCH ×2 (09:00→20:55)
[2019-12-07] MEDS: LABETALOL 200 MG TABLET PO SCH ×2 (09:00→20:54)
[2019-12-07] MEDS: cilostazoL 50 MG TABLET PO SCH ×2 (09:00→20:54)
[2019-12-07] MEDS: CHLORHEXIDINE 0.12% ORAL RINSE 60 ML BOTTLE SWISH/SPIT SCH ×2 (09:00→20:55)
[2019-12-07] MEDS: MENTHOL/ZINC OXIDE OINT 71 GM JAR TOP SCH ×2 (09:30→20:55)
[2019-12-08 04:36] LABS: Basophils # 0.1 10*3/uL (0.0-0.2); Basophils % 0.2 % (0.0-0.8); Hemoglobin 10.5 GM/DL (14.0-18.0); Immature Granulocytes % 1.7 %; Lymphocytes # 0.2 10*3/uL (1.4-4.0); Lymphocytes % 0.7 % (21.2-54.2); Mean Corpuscular HGB Conc 33.9 GM/DL (32-36); Mean Corpuscular Volume 88.1 FL (87-102); Monocytes % 3.1 % (1.7-12.7); NRBC # 0.03 10*3/uL; Neutrophils % 94.3 % (38.7-73.9); Red Blood Count 3.52 MC/CUMM (3.8-5.5); Red Cell Distribution Width 16.1 % (9.3-17.3); White Blood Count 23.9 T/CUMM (4-12)
[2019-12-08 04:42] LABS: Platelet Count 20 T/CUMM (130-400)
[2019-12-08 05:00] LABS: Albumin 2.3 G/DL (3.4-5.0); Bilirubin,Total 1.1 MG/DL (0.2-1.0); Calcium 8.2 MG/DL (8.5-10.1); Osmolality,Calculated 306.4 MOS/KG (273-304)
[2019-12-08 06:40] LABS: Lymphocytes 1 % (20-55); Segmented Neutrophils 95 % (50-85); Total Cells Counted 100
[2019-12-08 06:41] LABS: Anisocytosis 1+; Ovalocytes Few; Platelet Estimate Decreased
[2019-12-08 08:21] LABS: VBG Base Excess -1.5 MEQ/L (0-4); VBG HCO3 22.7 MEQ/L (24-28); VBG PCO2 37.9 MMHG (41-51); VBG PH 7.392; VBG PO2 44.7 MMHG (17-40)
[2019-12-08] MEDS: FAMOTIDINE 20 MG/2 ML VIAL IV SCH (08:44)
[2019-12-08] MEDS: methylPREDNISolone SOD SUC 125 MG/2 ML VIAL IV SCH ×2 (08:48→20:21)
[2019-12-08] MEDS: LABETALOL 200 MG TABLET PO SCH ×2 (08:57→20:23)
[2019-12-08] MEDS: cilostazoL 50 MG TABLET PO SCH ×2 (08:58→20:23)
[2019-12-08] MEDS: ONDANSETRON 4 MG/2 ML VIAL IV PRN (09:33)
[2019-12-08] MEDS: INSULIN REGULAR 100 UNIT/ML SUBCUT SCH ×4 (09:34→20:24)
[2019-12-08] MEDS: CHLORHEXIDINE 0.12% ORAL RINSE 60 ML BOTTLE SWISH/SPIT SCH ×2 (09:35→20:24)
[2019-12-08] MEDS: MENTHOL/ZINC OXIDE OINT 71 GM JAR TOP SCH ×2 (09:35→20:23)
[2019-12-08] MEDS: MORPHINE 4 MG/1 ML VIAL IV PRN (18:43)
[2019-12-09 04:25] LABS: Basophils # 0.1 10*3/uL (0.0-0.2); Basophils % 0.2 % (0.0-0.8); Hematocrit 28.5 VOL% (42.0-52.0); Hemoglobin 9.6 GM/DL (14.0-18.0); Immature Granulocytes % 1.2 %; Immature Granulocytes Absolute 0.31 #; Lymphocytes # 0.2 10*3/uL (1.4-4.0); Lymphocytes % 0.7 % (21.2-54.2); Mean Corpuscular HGB Conc 33.7 GM/DL (32-36); Monocytes % 3.3 % (1.7-12.7); NRBC # 0.03 10*3/uL; Neutrophils % 94.6 % (38.7-73.9); Red Blood Count 3.24 MC/CUMM (3.8-5.5); Red Cell Distribution Width 15.9 % (9.3-17.3); White Blood Count 26.2 T/CUMM (4-12)
[2019-12-09 04:27] LABS: Platelet Count 17 T/CUMM (130-400)
[2019-12-09 04:38] LABS: Albumin 1.9 G/DL (3.4-5.0); Bilirubin,Total 0.9 MG/DL (0.2-1.0); Calcium 8.3 MG/DL (8.5-10.1); Osmolality,Calculated 293.8 MOS/KG (273-304); Total Protein 4.7 G/DL (6.4-8.3)
[2019-12-09] MEDS: methylPREDNISolone SOD SUC 125 MG/2 ML VIAL IV SCH ×3 (08:24→16:23)
[2019-12-09] MEDS: cilostazoL 50 MG TABLET PO SCH ×2 (08:25→23:08)
[2019-12-09] MEDS: LABETALOL 200 MG TABLET PO SCH ×2 (08:25→22:23)
[2019-12-09] MEDS: FAMOTIDINE 20 MG/2 ML VIAL IV SCH (08:25)
[2019-12-09] MEDS: MENTHOL/ZINC OXIDE OINT 71 GM JAR TOP SCH ×2 (08:26→22:26)
[2019-12-09] MEDS: INSULIN REGULAR 100 UNIT/ML SUBCUT SCH ×4 (08:26→22:24)
[2019-12-09] MEDS: CHLORHEXIDINE 0.12% ORAL RINSE 60 ML BOTTLE SWISH/SPIT SCH ×2 (08:26→23:09)
[2019-12-09 08:53] LABS: Band Neutrophils 1 % (0-10); Lymphocytes 3 % (20-55); Platelet Estimate Decreased; Polychromasia Slight; Segmented Neutrophils 94 % (50-85); Total Cells Counted 100
[2019-12-09] MEDS: MORPHINE 4 MG/1 ML VIAL IV PRN (10:21)
[2019-12-09] MEDS: ALBUTEROL/IPRATROPIUM 3 ML NEB RESP TX SCH ×2 (13:30→19:24)
[2019-12-09 14:11] LABS: VBG Base Excess -3.7 MEQ/L (0-4); VBG HCO3 20.2 MEQ/L (24-28); VBG Oxygen Saturation 98.5 %; VBG PCO2 32.2 MMHG (41-51); VBG PH 7.415; VBG PO2 167.2 MMHG (17-40)
[2019-12-09 14:12] LABS: VBG Inspired Oxygen 95.6 PERCENT (0-100)
[2019-12-09] MEDS ORDERED: VANCOMYCIN INJ 1,000 MG in SODIUM CHLORIDE 0.9% 250 ML IV ONE (20:38)
[2019-12-09 20:47] LABS: ABG Base Excess -2.7 MMOL/L (-2.5-2.5); ABG Oxygen Saturation 89.2 % (95-100); ABG PH 7.366 (7.35-7.45); ABG PO2 61.6 MM HG (80-95); ABG TCO2 20.5 MMOL/L (23-27); Allen Test Positive
[2019-12-09] MEDS ORDERED: ETOMIDATE 20 MG/10 ML VIAL IV ONE ×2 (21:06→22:11)
[2019-12-09] MEDS ORDERED: ROCURONIUM 100 MG/10 ML VIAL IV ONE ×2 (21:08→22:11)
[2019-12-09] MEDS: DOBUTamine 500 MG/250 ML PREMIX IV SCH (21:36)
[2019-12-09] MEDS ORDERED: DOBUTamine 500 MG/250 ML PREMIX IV ONE (21:40)
[2019-12-09 22:16] LABS: ABG Base Excess -2.7 MMOL/L (-2.5-2.5); ABG HCO3 22.2 MMOL/L (20-26); ABG Oxygen Saturation 99.9 % (95-100); ABG PCO2 27.4 MM HG (35-48); ABG PH 7.473 (7.35-7.45); ABG TCO2 18.3 MMOL/L (23-27)
[2019-12-09] MEDS ORDERED: ALBUMIN 5% 12.5 GM in PREMIX 1 EACH IV ONE ×2 (22:18→22:21)
[2019-12-09] MEDS ORDERED: ALBUMIN 5% 12.5 GM/250 ML VIAL IV ONE (22:26)
[2019-12-09] MEDS: CEFEPIME 1,000 MG in SODIUM CHLORIDE 0.9% 100 ML IV SCH (23:49)
[2019-12-10] MEDS: ALBUTEROL/IPRATROPIUM 3 ML NEB RESP TX SCH ×4 (01:46→19:40)
[2019-12-10] MEDS: methylPREDNISolone SOD SUC 125 MG/2 ML VIAL IV SCH (01:50)
[2019-12-10] MEDS: CEFEPIME 1,000 MG in SODIUM CHLORIDE 0.9% 100 ML IV SCH ×4 (03:15→21:07)
[2019-12-10 04:16] LABS: Basophils % 0.2 % (0.0-0.8); Hematocrit 23.6 VOL% (42.0-52.0); Hemoglobin 8.1 GM/DL (14.0-18.0); Immature Granulocytes % 1.9 %; Immature Granulocytes Absolute 0.39 #; Lymphocytes # 0.2 10*3/uL (1.4-4.0); Lymphocytes % 0.7 % (21.2-54.2); Mean Corpuscular HGB Conc 34.3 GM/DL (32-36); Mean Corpuscular Volume 85.5 FL (87-102); Monocytes % 2.7 % (1.7-12.7); Neutrophils % 94.5 % (38.7-73.9); Red Blood Count 2.76 MC/CUMM (3.8-5.5); Red Cell Distribution Width 15.9 % (9.3-17.3); White Blood Count 20.6 T/CUMM (4-12)
[2019-12-10 04:17] LABS: ABG Base Excess -3.5 MMOL/L (-2.5-2.5); ABG HCO3 21.5 MMOL/L (20-26); ABG Oxygen Saturation 98.6 % (95-100); ABG PH 7.387 (7.35-7.45); ABG TCO2 19.5 MMOL/L (23-27); Allen Test Positive; Pt O2 Delivery Device Ventilator
[2019-12-10 04:25] LABS: Platelet Count 13 T/CUMM (130-400)
[2019-12-10 04:31] LABS: Bilirubin,Total 1.1 MG/DL (0.2-1.0); Calcium 8.4 MG/DL (8.5-10.1); Osmolality,Calculated 295.9 MOS/KG (273-304); Total Protein 4.5 G/DL (6.4-8.3)
[2019-12-10 04:44] LABS: Hypochromasia 1+; Lymphocytes 1 % (20-55); Ovalocytes Slight; Platelet Estimate Decreased; Segmented Neutrophils 96 % (50-85); Total Cells Counted 100
[2019-12-10 04:45] LABS: Burr Cells Slight
[2019-12-10] MEDS ORDERED: SODIUM CHLORIDE 0.9% 1,000 ML IV PRN (08:46)
[2019-12-10] MEDS: LABETALOL 200 MG TABLET PO SCH ×2 (09:00→20:49)
[2019-12-10] MEDS: MENTHOL/ZINC OXIDE OINT 71 GM JAR TOP SCH ×2 (09:30→20:45)
[2019-12-10] MEDS: CHLORHEXIDINE 0.12% ORAL RINSE 60 ML BOTTLE SWISH/SPIT SCH ×2 (09:45→20:45)
[2019-12-10] MEDS: cilostazoL 50 MG TABLET PO SCH ×2 (09:50→20:45)
[2019-12-10] MEDS: FAMOTIDINE 20 MG/2 ML VIAL IV SCH (09:50)
[2019-12-10] MEDS: methylPREDNISolone SOD SUC INJ 1,000 MG in SODIUM CHLORIDE 0.9% 100 ML IV SCH (10:40)
[2019-12-10] MEDS ORDERED: INSULIN REGULAR 100 UNIT/ML SUBCUT SCH (12:00)
[2019-12-10 12:11] LABS: HIT Interpretation Negative (Negative)
[2019-12-10] MEDS: INSULIN REGULAR 100 UNIT/ML SUBCUT SCH ×2 (12:40→18:00)
[2019-12-10] MEDS: MORPHINE 4 MG/1 ML VIAL IV PRN (15:15)
[2019-12-10] MEDS ORDERED: ALBUMIN 5% 12.5 GM in PREMIX 1 EACH IV ONE (23:05)
[2019-12-10] MEDS ORDERED: ALBUMIN 5% 12.5 GM/250 ML VIAL IV ONE (23:06)
[2019-12-11] MEDS: DOBUTamine 500 MG/250 ML PREMIX IV SCH ×2 (00:08→03:25)
[2019-12-11] MEDS: INSULIN REGULAR 100 UNIT/ML SUBCUT SCH ×4 (00:10→18:00)
[2019-12-11] MEDS: PHENYLEPHRINE DRIP 40 MG/250 ML PREMIX IV PRN (00:24)
[2019-12-11] MEDS: ALBUTEROL/IPRATROPIUM 3 ML NEB RESP TX SCH ×4 (00:35→19:50)
[2019-12-11] MEDS: CEFEPIME 1,000 MG in SODIUM CHLORIDE 0.9% 100 ML IV SCH ×2 (03:18→08:25)
[2019-12-11 04:52] LABS: ABG Base Excess -4.5 MMOL/L (-2.5-2.5); ABG HCO3 20.6 MMOL/L (20-26); ABG Oxygen Saturation 98.5 % (95-100); ABG PH 7.387 (7.35-7.45); ABG TCO2 18.5 MMOL/L (23-27); Allen Test Positive; Pt O2 Delivery Device Ventilator
[2019-12-11 05:02] LABS: Basophils % 0.1 % (0.0-0.8); Hematocrit 22.3 VOL% (42.0-52.0); Hemoglobin 7.6 GM/DL (14.0-18.0); Immature Granulocytes % 1.5 %; Immature Granulocytes Absolute 0.33 #; Lymphocytes # 0.1 10*3/uL (1.4-4.0); Lymphocytes % 0.5 % (21.2-54.2); Mean Corpuscular HGB Conc 34.1 GM/DL (32-36); Mean Corpuscular Volume 88.1 FL (87-102); Mean Platelet Volume 13.6 FL (9.6-12.0); Monocytes % 2.1 % (1.7-12.7); NRBC # 0.02 10*3/uL; Neutrophils % 95.8 % (38.7-73.9); Red Blood Count 2.53 MC/CUMM (3.8-5.5); White Blood Count 22.1 T/CUMM (4-12)
[2019-12-11 05:04] LABS: Platelet Count 35 T/CUMM (130-400)
[2019-12-11 05:22] LABS: Hypochromasia 1+; Ovalocytes Slight; Platelet Estimate Decreased; Segmented Neutrophils 98 % (50-85); Total Cells Counted 100
[2019-12-11 05:29] LABS: Bilirubin,Total 1.3 MG/DL (0.2-1.0); Calcium 7.9 MG/DL (8.5-10.1); Osmolality,Calculated 303.9 MOS/KG (273-304); Total Protein 4.7 G/DL (6.4-8.3)
[2019-12-11] MEDS ORDERED: VANCOMYCIN INJ 750 MG in SODIUM CHLORIDE 0.9% 250 ML IV PRN (08:21)
[2019-12-11] MEDS: FAMOTIDINE 20 MG/2 ML VIAL IV SCH (08:25)
[2019-12-11] MEDS: CHLORHEXIDINE 0.12% ORAL RINSE 60 ML BOTTLE SWISH/SPIT SCH ×2 (08:30→20:40)
[2019-12-11] MEDS: cilostazoL 50 MG TABLET PO SCH ×2 (08:30→20:40)
[2019-12-11] MEDS: MENTHOL/ZINC OXIDE OINT 71 GM JAR TOP SCH ×2 (08:35→20:40)
[2019-12-11] MEDS: methylPREDNISolone SOD SUC INJ 1,000 MG in SODIUM CHLORIDE 0.9% 100 ML IV SCH (08:55)
[2019-12-11] MEDS ORDERED: VANCOMYCIN INJ 1,500 MG in SODIUM CHLORIDE 0.9% 500 ML IV ONE (09:00)
[2019-12-11] MEDS ORDERED: METOPROLOL TARTRATE 5 MG/5 ML VIAL IV ONE (14:54)
[2019-12-11] MEDS: LABETALOL 20 MG/4 ML SYRINGE IV PRN (17:05)
[2019-12-11] MEDS: MORPHINE 4 MG/1 ML VIAL IV PRN (23:40)
[2019-12-11] MEDS: ONDANSETRON 4 MG/2 ML VIAL IV PRN (23:53)
[2019-12-12] MEDS: DOBUTamine 500 MG/250 ML PREMIX IV SCH ×2 (00:23→16:49)
[2019-12-12] MEDS: INSULIN REGULAR 100 UNIT/ML SUBCUT SCH ×4 (00:45→17:08)
[2019-12-12 03:52] LABS: Basophils # 0.1 10*3/uL (0.0-0.2); Basophils % 0.2 % (0.0-0.8); Hemoglobin 9.4 GM/DL (14.0-18.0); Immature Granulocytes % 1.7 %; Immature Granulocytes Absolute 0.47 #; Lymphocytes # 0.1 10*3/uL (1.4-4.0); Lymphocytes % 0.3 % (21.2-54.2); Mean Corpuscular HGB Conc 33.6 GM/DL (32-36); Mean Corpuscular Volume 88.1 FL (87-102); Mean Platelet Volume 13.1 FL (9.6-12.0); NRBC # 0.03 10*3/uL; Neutrophils % 95.8 % (38.7-73.9); Red Blood Count 3.18 MC/CUMM (3.8-5.5); Red Cell Distribution Width 16.3 % (9.3-17.3); White Blood Count 27.1 T/CUMM (4-12)
[2019-12-12 03:57] LABS: Platelet Count 33 T/CUMM (130-400)
[2019-12-12 04:02] LABS: Bilirubin,Total 1.5 MG/DL (0.2-1.0); Calcium 8.1 MG/DL (8.5-10.1); Osmolality,Calculated 297.4 MOS/KG (273-304); Total Protein 5.1 G/DL (6.4-8.3)
[2019-12-12] MEDS: CEFEPIME 1,000 MG in SODIUM CHLORIDE 0.9% 100 ML IV SCH (04:10)
[2019-12-12] MEDS: LABETALOL 20 MG/4 ML SYRINGE IV PRN (04:10)
[2019-12-12 04:50] LABS: Burr Cells Slight; Hypochromasia Slight; Ovalocytes Slight; Platelet Estimate Decreased; Segmented Neutrophils 97 % (50-85); Total Cells Counted 100
[2019-12-12 05:16] LABS: INR 1.2; PT Patient Result 12.9 SECS (9.8-11.9); Partial Thromboplastin Time 43.7 SECS (23.9-33.8)
[2019-12-12] MEDS: MORPHINE 4 MG/1 ML VIAL IV PRN ×2 (05:47→13:26)
[2019-12-12] MEDS: ONDANSETRON 4 MG/2 ML VIAL IV PRN (05:48)
[2019-12-12] MEDS: ALBUTEROL/IPRATROPIUM 3 ML NEB RESP TX SCH ×3 (07:11→19:13)
[2019-12-12] MEDS: MENTHOL/ZINC OXIDE OINT 71 GM JAR TOP SCH ×2 (08:20→21:30)
[2019-12-12] MEDS: CHLORHEXIDINE 0.12% ORAL RINSE 60 ML BOTTLE SWISH/SPIT SCH ×2 (08:20→21:29)
[2019-12-12] MEDS: methylPREDNISolone SOD SUC INJ 1,000 MG in SODIUM CHLORIDE 0.9% 100 ML IV SCH (09:30)
[2019-12-12] MEDS: FAMOTIDINE 20 MG/2 ML VIAL IV SCH (09:34)
[2019-12-12] MEDS: cilostazoL 50 MG TABLET PO SCH ×2 (09:43→21:28)
[2019-12-12 15:48] LABS: ABG Base Excess -4.1 MMOL/L (-2.5-2.5); ABG Oxygen Saturation 93.5 % (95-100); ABG PCO2 32.2 MM HG (35-48); ABG PO2 80.7 MM HG (80-95); ABG TCO2 18.2 MMOL/L (23-27); Allen Test Positive; Pt O2 Delivery Device Other
[2019-12-12] MEDS ORDERED: ALBUMIN 5% 12.5 GM in PREMIX 1 EACH IV ONE (16:31)
[2019-12-12] MEDS ORDERED: ALBUMIN 5% 12.5 GM/250 ML VIAL IV ONE (16:32)
[2019-12-12] MEDS: PHENYLEPHRINE DRIP 40 MG/250 ML PREMIX IV PRN ×2 (17:06→22:39)
[2019-12-12 17:33] LABS: ABG Base Excess -1.4 MMOL/L (-2.5-2.5); ABG HCO3 23.3 MMOL/L (20-26); ABG Oxygen Saturation 99.1 % (95-100); ABG PCO2 35.3 MM HG (35-48); ABG PH 7.416 (7.35-7.45); ABG TCO2 20.9 MMOL/L (23-27)
[2019-12-12] MEDS ORDERED: VANCOMYCIN INJ 750 MG in SODIUM CHLORIDE 0.9% 250 ML IV ONE (21:00)
[2019-12-13] MEDS: INSULIN REGULAR 100 UNIT/ML SUBCUT SCH ×4 (00:03→17:59)
[2019-12-13] MEDS: ALBUTEROL/IPRATROPIUM 3 ML NEB RESP TX SCH ×4 (01:00→19:23)
[2019-12-13] MEDS: PHENYLEPHRINE DRIP 40 MG/250 ML PREMIX IV PRN ×3 (03:33→21:12)
[2019-12-13] MEDS: CEFEPIME 1,000 MG in SODIUM CHLORIDE 0.9% 100 ML IV SCH (03:34)
[2019-12-13 04:31] LABS: ABG Base Excess -1.6 MMOL/L (-2.5-2.5); ABG HCO3 22.3 MMOL/L (20-26); ABG Oxygen Saturation 98.8 % (95-100); ABG PCO2 34.2 MM HG (35-48); ABG PH 7.432 (7.35-7.45); ABG PO2 194.6 MM HG (80-95); ABG TCO2 23.3 MMOL/L (23-27); Allen Test Positive; Pt O2 Delivery Device Ventilator
[2019-12-13 05:23] LABS: Basophils % 0.1 % (0.0-0.8); Hematocrit 23.4 VOL% (42.0-52.0); Hemoglobin 7.7 GM/DL (14.0-18.0); Immature Granulocytes Absolute 0.23 #; Lymphocytes # 0.2 10*3/uL (1.4-4.0); Mean Corpuscular HGB Conc 32.9 GM/DL (32-36); Monocytes % 2.2 % (1.7-12.7); NRBC # 0.05 10*3/uL; Neutrophils % 95.7 % (38.7-73.9); Red Cell Distribution Width 16.7 % (9.3-17.3); White Blood Count 21.9 T/CUMM (4-12)
[2019-12-13 05:33] LABS: Platelet Count 30 T/CUMM (130-400)
[2019-12-13 05:34] LABS: Albumin 1.7 G/DL (3.4-5.0); Bilirubin,Total 1.5 MG/DL (0.2-1.0); Calcium 8.5 MG/DL (8.5-10.1); Osmolality,Calculated 291.4 MOS/KG (273-304); Total Protein 4.4 G/DL (6.4-8.3)
[2019-12-13 05:47] LABS: Band Neutrophils 1 % (0-10); Hypochromasia 1+; Lymphocytes 1 % (20-55); Platelet Estimate Decreased; Segmented Neutrophils 97 % (50-85); Total Cells Counted 100
[2019-12-13 05:48] LABS: Ovalocytes Slight
[2019-12-13] MEDS: FAMOTIDINE 20 MG/2 ML VIAL IV SCH (08:39)
[2019-12-13] MEDS: CHLORHEXIDINE 0.12% ORAL RINSE 60 ML BOTTLE SWISH/SPIT SCH ×2 (08:39→20:55)
[2019-12-13] MEDS: MENTHOL/ZINC OXIDE OINT 71 GM JAR TOP SCH ×2 (08:46→20:56)
[2019-12-13] MEDS: cilostazoL 50 MG TABLET PO SCH ×2 (08:46→20:55)
[2019-12-13] MEDS: DOBUTamine 500 MG/250 ML PREMIX IV SCH (16:36)
[2019-12-14] MEDS: INSULIN REGULAR 100 UNIT/ML SUBCUT SCH ×4 (00:11→15:41)
[2019-12-14] MEDS: ALBUTEROL/IPRATROPIUM 3 ML NEB RESP TX SCH ×4 (01:23→20:30)
[2019-12-14] MEDS: PHENYLEPHRINE DRIP 40 MG/250 ML PREMIX IV PRN ×5 (02:28→21:33)
[2019-12-14] MEDS: CEFEPIME 1,000 MG in SODIUM CHLORIDE 0.9% 100 ML IV SCH (03:48)
[2019-12-14 04:58] LABS: ABG Base Excess -3.2 MMOL/L (-2.5-2.5); ABG HCO3 20.9 MMOL/L (20-26); ABG Oxygen Saturation 95.9 % (95-100); ABG PCO2 33.5 MM HG (35-48); ABG PH 7.414 (7.35-7.45); ABG PO2 91.3 MM HG (80-95)
[2019-12-14 04:59] LABS: Allen Test Positive; Pt O2 Delivery Device Ventilator
[2019-12-14 05:33] LABS: Basophils % 0.1 % (0.0-0.8); Hematocrit 21.9 VOL% (42.0-52.0); Hemoglobin 7.4 GM/DL (14.0-18.0); Immature Granulocytes % 0.9 %; Immature Granulocytes Absolute 0.18 #; Lymphocytes # 0.3 10*3/uL (1.4-4.0); Lymphocytes % 1.4 % (21.2-54.2); Mean Corpuscular HGB Conc 33.8 GM/DL (32-36); Mean Corpuscular Volume 88.3 FL (87-102); Mean Platelet Volume 13.2 FL (9.6-12.0); Monocytes % 2.5 % (1.7-12.7); NRBC # 0.14 10*3/uL; Neutrophils % 95.1 % (38.7-73.9); Red Blood Count 2.48 MC/CUMM (3.8-5.5); Red Cell Distribution Width 16.8 % (9.3-17.3); White Blood Count 20.1 T/CUMM (4-12)
[2019-12-14 05:40] LABS: Platelet Count 27 T/CUMM (130-400)
[2019-12-14 05:43] LABS: Calcium 7.1 MG/DL (8.5-10.1); Osmolality,Calculated 301.4 MOS/KG (273-304)
[2019-12-14 05:44] LABS: Prealbumin 9.7 MG/DL (20-40)
[2019-12-14 06:12] LABS: Band Neutrophils 2 % (0-10); Hypochromasia 1+; Lymphocytes 1 % (20-55); Segmented Neutrophils 96 % (50-85); Total Cells Counted 100
[2019-12-14 06:13] LABS: Anisocytosis 1+; Microcytosis 1+; Ovalocytes Slight; Polychromasia Slight
[2019-12-14 06:14] LABS: Platelet Estimate Decreased
[2019-12-14] MEDS ORDERED: LORazepam 2 MG/1 ML VIAL IV ONE (07:30)
[2019-12-14] MEDS: MENTHOL/ZINC OXIDE OINT 71 GM JAR TOP SCH ×2 (07:45→20:53)
[2019-12-14] MEDS: cilostazoL 50 MG TABLET PO SCH ×2 (08:10→20:54)
[2019-12-14] MEDS: FAMOTIDINE 20 MG/2 ML VIAL IV SCH (08:15)
[2019-12-14] MEDS: CHLORHEXIDINE 0.12% ORAL RINSE 60 ML BOTTLE SWISH/SPIT SCH ×2 (08:20→20:53)
[2019-12-14] MEDS ORDERED: fentaNYL INJ 2,500 MCG in SODIUM CHLORIDE 0.9% 200 ML IV PRN (08:34)
[2019-12-14] MEDS ORDERED: SODIUM CHLORIDE 0.9% 250 ML IV PRN (08:56)
[2019-12-14] MEDS: HYDROmorphone INJ 50 MG in SODIUM CHLORIDE 0.9% 45 ML IV SCH (09:30)
[2019-12-14] MEDS ORDERED: VANCOMYCIN INJ 750 MG in SODIUM CHLORIDE 0.9% 250 ML IV ONE (17:00)
[2019-12-14] MEDS: DOBUTamine 500 MG/250 ML PREMIX IV SCH (17:25)
[2019-12-14] MEDS ORDERED: VANCOMYCIN INJ 1,000 MG in SODIUM CHLORIDE 0.9% 250 ML IV ONE (23:52)
[2019-12-15] MEDS: ALBUTEROL/IPRATROPIUM 3 ML NEB RESP TX SCH ×4 (01:20→19:50)
[2019-12-15] MEDS: INSULIN REGULAR 100 UNIT/ML SUBCUT SCH ×4 (01:30→17:50)
[2019-12-15 03:27] LABS: ABG Base Excess -1.6 MMOL/L (-2.5-2.5); ABG HCO3 23.1 MMOL/L (20-26); ABG Oxygen Saturation 98.4 % (95-100); ABG PH 7.341 (7.35-7.45); ABG TCO2 22.1 MMOL/L (23-27); Allen Test Positive; Pt O2 Delivery Device Ventilator
[2019-12-15] MEDS: CEFEPIME 1,000 MG in SODIUM CHLORIDE 0.9% 100 ML IV SCH (03:40)
[2019-12-15 04:07] LABS: Basophils % 0.2 % (0.0-0.8); Eosinophils # 0.1 10*3/uL (0.0-0.87); Eosinophils % 0.4 % (0.00-10.9); Hematocrit 29.4 VOL% (42.0-52.0); Hemoglobin 9.9 GM/DL (14.0-18.0); Immature Granulocytes % 1.1 %; Immature Granulocytes Absolute 0.15 #; Lymphocytes # 0.4 10*3/uL (1.4-4.0); Lymphocytes % 3.2 % (21.2-54.2); Mean Corpuscular HGB Conc 33.7 GM/DL (32-36); Mean Corpuscular Volume 88.3 FL (87-102); Monocytes % 1.3 % (1.7-12.7); NRBC # 0.05 10*3/uL; Neutrophils % 93.8 % (38.7-73.9); Red Blood Count 3.33 MC/CUMM (3.8-5.5); Red Cell Distribution Width 16.3 % (9.3-17.3); White Blood Count 13.6 T/CUMM (4-12)
[2019-12-15 04:22] LABS: Albumin 1.4 G/DL (3.4-5.0); Bilirubin,Total 1.1 MG/DL (0.2-1.0); Calcium 8.2 MG/DL (8.5-10.1); Osmolality,Calculated 290.5 MOS/KG (273-304); Total Protein 4.8 G/DL (6.4-8.3)
[2019-12-15 04:27] LABS: Platelet Count 30 T/CUMM (130-400)
[2019-12-15 06:02] LABS: Band Neutrophils 2 % (0-10); Burr Cells Slight; Hypochromasia Slight; Lymphocytes 4 % (20-55); Nucleated Red Blood Cells 1 (0-5); Ovalocytes Slight; Platelet Estimate Decreased; Segmented Neutrophils 92 % (50-85); Total Cells Counted 100
[2019-12-15 06:03] LABS: Microcytosis Slight
[2019-12-15] MEDS: PHENYLEPHRINE DRIP 40 MG/250 ML PREMIX IV PRN ×2 (07:50→21:41)
[2019-12-15] MEDS: FAMOTIDINE 20 MG/2 ML VIAL IV SCH (08:00)
[2019-12-15] MEDS: cilostazoL 50 MG TABLET PO SCH ×2 (08:00→21:38)
[2019-12-15] MEDS: CHLORHEXIDINE 0.12% ORAL RINSE 60 ML BOTTLE SWISH/SPIT SCH ×2 (09:10→21:38)
[2019-12-15] MEDS: MENTHOL/ZINC OXIDE OINT 71 GM JAR TOP SCH ×2 (09:15→20:12)
[2019-12-15] MEDS: HYDROmorphone INJ 50 MG in SODIUM CHLORIDE 0.9% 45 ML IV SCH (09:50)
[2019-12-15] MEDS: DOBUTamine 500 MG/250 ML PREMIX IV SCH ×2 (19:14→23:21)
[2019-12-16] MEDS: INSULIN REGULAR 100 UNIT/ML SUBCUT SCH ×4 (00:47→18:16)
[2019-12-16] MEDS: ALBUTEROL/IPRATROPIUM 3 ML NEB RESP TX SCH ×4 (01:35→19:15)
[2019-12-16] MEDS: CEFEPIME 1,000 MG in SODIUM CHLORIDE 0.9% 100 ML IV SCH (03:15)
[2019-12-16 03:38] LABS: ABG Base Excess -1.6 MMOL/L (-2.5-2.5); ABG HCO3 23.4 MMOL/L (20-26); ABG Oxygen Saturation 96.9 % (95-100); ABG PCO2 40.7 MM HG (35-48); ABG PH 7.378 (7.35-7.45); ABG PO2 98.7 MM HG (80-95); ABG TCO2 24.7 MMOL/L (23-27)
[2019-12-16 05:08] LABS: Basophils % 0.1 % (0.0-0.8); Eosinophils % 0.3 % (0.00-10.9); Hematocrit 23.6 VOL% (42.0-52.0); Hemoglobin 7.8 GM/DL (14.0-18.0); Immature Granulocytes % 1.6 %; Immature Granulocytes Absolute 0.18 #; Lymphocytes # 0.3 10*3/uL (1.4-4.0); Lymphocytes % 2.7 % (21.2-54.2); Mean Corpuscular HGB Conc 33.1 GM/DL (32-36); Mean Corpuscular Volume 91.1 FL (87-102); Monocytes % 2.1 % (1.7-12.7); NRBC # 0.04 10*3/uL; Neutrophils % 93.2 % (38.7-73.9); Red Blood Count 2.59 MC/CUMM (3.8-5.5); Red Cell Distribution Width 16.4 % (9.3-17.3); White Blood Count 10.9 T/CUMM (4-12)
[2019-12-16 05:15] LABS: Platelet Count 10 T/CUMM (130-400)
[2019-12-16 05:27] LABS: Calcium 7.7 MG/DL (8.5-10.1); Eosinophils 2 % (0-10); Hypochromasia 2+; Lymphocytes 5 % (20-55); Nucleated Red Blood Cells 1 (0-5); Osmolality,Calculated 294.5 MOS/KG (273-304); Platelet Estimate Decreased; Segmented Neutrophils 92 % (50-85); Total Cells Counted 100
[2019-12-16 05:31] LABS: Microcytosis Slight
[2019-12-16] MEDS: PHENYLEPHRINE DRIP 40 MG/250 ML PREMIX IV PRN (05:50)
[2019-12-16] MEDS: methylPREDNISolone SOD SUC 125 MG/2 ML VIAL IV SCH ×3 (06:30→21:30)
[2019-12-16] MEDS: HYDROmorphone INJ 50 MG in SODIUM CHLORIDE 0.9% 45 ML IV SCH (09:35)
[2019-12-16] MEDS: FAMOTIDINE 20 MG/2 ML VIAL IV SCH (09:35)
[2019-12-16] MEDS: cilostazoL 50 MG TABLET PO SCH ×2 (09:35→20:32)
[2019-12-16] MEDS: MENTHOL/ZINC OXIDE OINT 71 GM JAR TOP SCH ×2 (09:36→20:32)
[2019-12-16] MEDS: CHLORHEXIDINE 0.12% ORAL RINSE 60 ML BOTTLE SWISH/SPIT SCH ×2 (09:36→20:31)
[2019-12-16] MEDS ORDERED: AMIODARONE INJ 450 MG in DEXTROSE 5% 241 ML IV SCH (16:00)
[2019-12-16] MEDS: ROCURONIUM 500 MG in SODIUM CHLORIDE 0.9% 500 ML IV PRN (16:28)
[2019-12-16] MEDS: AMIODARONE INJ 450 MG in DEXTROSE 5% 241 ML IV SCH (22:05)
[2019-12-17] MEDS: INSULIN REGULAR 100 UNIT/ML SUBCUT SCH ×4 (00:16→18:14)
[2019-12-17] MEDS: ALBUTEROL/IPRATROPIUM 3 ML NEB RESP TX SCH ×4 (01:20→19:25)
[2019-12-17] MEDS: ROCURONIUM 500 MG in SODIUM CHLORIDE 0.9% 500 ML IV PRN ×2 (03:30→15:50)
[2019-12-17] MEDS: CEFEPIME 1,000 MG in SODIUM CHLORIDE 0.9% 100 ML IV SCH (03:39)
[2019-12-17 04:09] LABS: Pt O2 Delivery Device Ventilator
[2019-12-17 04:13] LABS: ABG Base Excess -4.8 MMOL/L (-2.5-2.5); ABG HCO3 22.8 MMOL/L (20-26); ABG Oxygen Saturation 97.5 % (95-100); ABG PCO2 54.9 MM HG (35-48); ABG PH 7.237 (7.35-7.45); ABG PO2 117.1 MM HG (80-95); ABG TCO2 24.5 MMOL/L (23-27)
[2019-12-17 05:32] LABS: Basophils % 0.1 % (0.0-0.8); Hematocrit 28.8 VOL% (42.0-52.0); Hemoglobin 9.3 GM/DL (14.0-18.0); Immature Granulocytes % 1.5 %; Immature Granulocytes Absolute 0.11 #; Lymphocytes # 0.2 10*3/uL (1.4-4.0); Lymphocytes % 2.9 % (21.2-54.2); Mean Corpuscular HGB Conc 32.3 GM/DL (32-36); Mean Corpuscular Volume 91.7 FL (87-102); Mean Platelet Volume 10.8 FL (9.6-12.0); Monocytes % 2.8 % (1.7-12.7); NRBC # 0.02 10*3/uL; Neutrophils % 92.7 % (38.7-73.9); Red Blood Count 3.14 MC/CUMM (3.8-5.5); White Blood Count 7.2 T/CUMM (4-12)
[2019-12-17 05:34] LABS: Platelet Count 20 T/CUMM (130-400)
[2019-12-17 05:51] LABS: Hypochromasia 1+; Lymphocytes 3 % (20-55); Platelet Estimate Decreased; Segmented Neutrophils 97 % (50-85); Total Cells Counted 100
[2019-12-17 05:52] LABS: Microcytosis Slight
[2019-12-17] MEDS: DOBUTamine 500 MG/250 ML PREMIX IV SCH (06:14)
[2019-12-17] MEDS: methylPREDNISolone SOD SUC 125 MG/2 ML VIAL IV SCH ×3 (06:17→22:25)
[2019-12-17 06:36] LABS: Albumin 1.1 G/DL (3.4-5.0); Bilirubin,Total 0.91 MG/DL (0.2-1.0); Osmolality,Calculated 300.8 MOS/KG (273-304); Total Protein 4.7 G/DL (6.4-8.3)
[2019-12-17 06:38] LABS: Prealbumin 7.1 MG/DL (20-40)
[2019-12-17] MEDS: MENTHOL/ZINC OXIDE OINT 71 GM JAR TOP SCH ×2 (08:19→21:28)
[2019-12-17] MEDS: HYDROmorphone INJ 50 MG in SODIUM CHLORIDE 0.9% 45 ML IV SCH (08:19)
[2019-12-17] MEDS: cilostazoL 50 MG TABLET PO SCH ×2 (08:20→21:28)
[2019-12-17] MEDS: FAMOTIDINE 20 MG/2 ML VIAL IV SCH (08:20)
[2019-12-17] MEDS: CHLORHEXIDINE 0.12% ORAL RINSE 60 ML BOTTLE SWISH/SPIT SCH ×2 (08:20→21:28)
[2019-12-17] MEDS: ACETAMINOPHEN 325 MG TABLET PO PRN (10:56)
[2019-12-17] MEDS: AMIODARONE INJ 450 MG in DEXTROSE 5% 241 ML IV SCH (13:56)
[2019-12-17] MEDS ORDERED: VANCOMYCIN INJ 750 MG in SODIUM CHLORIDE 0.9% 250 ML IV ONE (17:00)
[2019-12-18] MEDS: INSULIN REGULAR 100 UNIT/ML SUBCUT SCH ×4 (00:26→16:59)
[2019-12-18] MEDS: ALBUTEROL/IPRATROPIUM 3 ML NEB RESP TX SCH ×4 (01:15→19:34)
[2019-12-18 04:05] LABS: ABG Base Excess -1.5 MMOL/L (-2.5-2.5); ABG HCO3 23.1 MMOL/L (20-26); ABG Oxygen Saturation 98.6 % (95-100); ABG PH 7.355 (7.35-7.45); ABG TCO2 21.9 MMOL/L (23-27); Allen Test Positive; Pt O2 Delivery Device Ventilator
[2019-12-18 04:19] LABS: Basophils % 0.3 % (0.0-0.8); Hematocrit 29.7 VOL% (42.0-52.0); Hemoglobin 10.1 GM/DL (14.0-18.0); Immature Granulocytes % 0.8 %; Immature Granulocytes Absolute 0.06 #; Lymphocytes # 0.2 10*3/uL (1.4-4.0); Lymphocytes % 2.3 % (21.2-54.2); Mean Corpuscular Volume 88.4 FL (87-102); Monocytes % 3.8 % (1.7-12.7); NRBC # 0.09 10*3/uL; Neutrophils % 92.8 % (38.7-73.9); Red Blood Count 3.36 MC/CUMM (3.8-5.5); Red Cell Distribution Width 15.6 % (9.3-17.3); White Blood Count 7.8 T/CUMM (4-12)
[2019-12-18 04:29] LABS: Platelet Count 16 T/CUMM (130-400)
[2019-12-18 04:31] LABS: Osmolality,Calculated 298.5 MOS/KG (273-304)
[2019-12-18 05:08] LABS: Hypochromasia 1+; Lymphocytes 1 % (20-55); Nucleated Red Blood Cells 4 (0-5); Platelet Estimate Decreased; Segmented Neutrophils 97 % (50-85); Total Cells Counted 100
[2019-12-18 05:09] LABS: Microcytosis Slight
[2019-12-18] MEDS: CEFEPIME 1,000 MG in SODIUM CHLORIDE 0.9% 100 ML IV SCH (05:28)
[2019-12-18] MEDS: methylPREDNISolone SOD SUC 125 MG/2 ML VIAL IV SCH ×2 (06:34→15:12)
[2019-12-18] MEDS: AMIODARONE INJ 450 MG in DEXTROSE 5% 241 ML IV SCH ×2 (06:59→23:12)
[2019-12-18] MEDS: DOBUTamine 500 MG/250 ML PREMIX IV SCH (07:03)
[2019-12-18] MEDS: CHLORHEXIDINE 0.12% ORAL RINSE 60 ML BOTTLE SWISH/SPIT SCH ×2 (08:00→23:26)
[2019-12-18] MEDS: MENTHOL/ZINC OXIDE OINT 71 GM JAR TOP SCH ×2 (08:00→23:26)
[2019-12-18] MEDS: HYDROmorphone INJ 50 MG in SODIUM CHLORIDE 0.9% 45 ML IV SCH ×2 (08:00→08:27)
[2019-12-18] MEDS: cilostazoL 50 MG TABLET PO SCH ×2 (08:00→23:25)
[2019-12-18] MEDS: FAMOTIDINE 20 MG/2 ML VIAL IV SCH (08:00)
[2019-12-18] MEDS: ACETAMINOPHEN 325 MG TABLET PO PRN (17:20)
[2019-12-19] MEDS: methylPREDNISolone SOD SUC 125 MG/2 ML VIAL IV SCH ×4 (00:14→22:27)
[2019-12-19] MEDS: ALBUTEROL/IPRATROPIUM 3 ML NEB RESP TX SCH ×4 (01:30→19:35)
[2019-12-19] MEDS: INSULIN REGULAR 100 UNIT/ML SUBCUT SCH ×4 (01:59→18:50)
[2019-12-19 03:52] LABS: Basophils % 0.1 % (0.0-0.8); Hematocrit 29.6 VOL% (42.0-52.0); Hemoglobin 9.7 GM/DL (14.0-18.0); Immature Granulocytes % 0.6 %; Immature Granulocytes Absolute 0.05 #; Lymphocytes # 0.3 10*3/uL (1.4-4.0); Lymphocytes % 3.1 % (21.2-54.2); Mean Corpuscular HGB Conc 32.8 GM/DL (32-36); Mean Corpuscular Volume 90.2 FL (87-102); Mean Platelet Volume 11.9 FL (9.6-12.0); Monocytes % 6.2 % (1.7-12.7); NRBC # 0.14 10*3/uL; Red Blood Count 3.28 MC/CUMM (3.8-5.5); Red Cell Distribution Width 15.7 % (9.3-17.3); White Blood Count 8.1 T/CUMM (4-12)
[2019-12-19 04:02] LABS: Calcium 7.7 MG/DL (8.5-10.1); Osmolality,Calculated 303.8 MOS/KG (273-304)
[2019-12-19 04:25] LABS: Platelet Count 26 T/CUMM (130-400)
[2019-12-19 04:41] LABS: ABG Base Excess -3.4 MMOL/L (-2.5-2.5); ABG HCO3 21.5 MMOL/L (20-26); ABG Oxygen Saturation 98.2 % (95-100); ABG PCO2 43.1 MM HG (35-48); ABG PH 7.325 (7.35-7.45); ABG TCO2 20.8 MMOL/L (23-27); Allen Test Positive; Pt O2 Delivery Device Ventilator
[2019-12-19 04:54] LABS: Band Neutrophils 1 % (0-10); Hypochromasia 1+; Lymphocytes 4 % (20-55); Nucleated Red Blood Cells 1 (0-5); Platelet Estimate Decreased; Segmented Neutrophils 91 % (50-85); Total Cells Counted 100
[2019-12-19 04:55] LABS: Microcytosis Slight
[2019-12-19] MEDS: DOBUTamine 500 MG/250 ML PREMIX IV SCH (06:41)
[2019-12-19] MEDS: MENTHOL/ZINC OXIDE OINT 71 GM JAR TOP SCH ×2 (08:30→21:35)
[2019-12-19] MEDS: FAMOTIDINE 20 MG/2 ML VIAL IV SCH (09:15)
[2019-12-19] MEDS: cilostazoL 50 MG TABLET PO SCH ×2 (09:15→21:35)
[2019-12-19] MEDS: CHLORHEXIDINE 0.12% ORAL RINSE 60 ML BOTTLE SWISH/SPIT SCH ×2 (09:20→21:36)
[2019-12-19] MEDS: HYDROmorphone INJ 50 MG in SODIUM CHLORIDE 0.9% 45 ML IV SCH (09:55)
[2019-12-19] MEDS ORDERED: ALBUMIN 25% 25 GM in PREMIX 1 EACH IV ONE ×2 (15:21→15:57)
[2019-12-19] MEDS: AMIODARONE INJ 450 MG in DEXTROSE 5% 241 ML IV SCH (15:28)
[2019-12-19] MEDS: LABETALOL 20 MG/4 ML SYRINGE IV PRN (20:30)
[2019-12-20] MEDS: INSULIN REGULAR 100 UNIT/ML SUBCUT SCH ×4 (00:02→19:13)
[2019-12-20] MEDS: ALBUTEROL/IPRATROPIUM 3 ML NEB RESP TX SCH ×4 (01:12→19:26)
[2019-12-20 03:31] LABS: ABG Base Excess -2.5 MMOL/L (-2.5-2.5); ABG HCO3 22.2 MMOL/L (20-26); ABG Oxygen Saturation 93.9 % (95-100); ABG PCO2 39.2 MM HG (35-48); ABG PH 7.367 (7.35-7.45); ABG PO2 68.6 MM HG (80-95); ABG TCO2 20.6 MMOL/L (23-27)
[2019-12-20 03:32] LABS: Allen Test Positive; Pt O2 Delivery Device Ventilator
[2019-12-20] MEDS: DOBUTamine 500 MG/250 ML PREMIX IV SCH (06:14)
[2019-12-20] MEDS: methylPREDNISolone SOD SUC 125 MG/2 ML VIAL IV SCH ×2 (06:16→13:52)
[2019-12-20] MEDS: HYDROmorphone INJ 50 MG in SODIUM CHLORIDE 0.9% 45 ML IV SCH (09:10)
[2019-12-20] MEDS: carvediloL 6.25 MG TABLET PO SCH ×2 (10:12→21:50)
[2019-12-20] MEDS: AMIODARONE 200 MG TABLET PO SCH ×2 (10:12→21:50)
[2019-12-20] MEDS: FAMOTIDINE 20 MG/2 ML VIAL IV SCH (10:13)
[2019-12-20] MEDS: cilostazoL 50 MG TABLET PO SCH ×2 (10:13→21:49)
[2019-12-20] MEDS: CHLORHEXIDINE 0.12% ORAL RINSE 60 ML BOTTLE SWISH/SPIT SCH ×2 (10:16→21:51)
[2019-12-20 13:23] LABS: Basophils % 0.2 % (0.0-0.8); Hematocrit 28.5 VOL% (42.0-52.0); Hemoglobin 9.6 GM/DL (14.0-18.0); Immature Granulocytes % 1.2 %; Immature Granulocytes Absolute 0.06 #; Lymphocytes # 0.2 10*3/uL (1.4-4.0); Lymphocytes % 4.1 % (21.2-54.2); Mean Corpuscular HGB Conc 33.7 GM/DL (32-36); Mean Corpuscular Volume 90.5 FL (87-102); Monocytes % 2.1 % (1.7-12.7); NRBC # 0.09 10*3/uL; Neutrophils % 92.4 % (38.7-73.9); Red Blood Count 3.15 MC/CUMM (3.8-5.5); Red Cell Distribution Width 15.4 % (9.3-17.3); White Blood Count 5.2 T/CUMM (4-12)
[2019-12-20 13:39] LABS: Calcium 7.5 MG/DL (8.5-10.1); Osmolality,Calculated 300.9 MOS/KG (273-304)
[2019-12-20] MEDS: ACETAMINOPHEN 325 MG TABLET PO PRN (13:52)
[2019-12-20 14:05] LABS: Platelet Count 11 T/CUMM (130-400)
[2019-12-20] MEDS ORDERED: SODIUM CHLORIDE 0.9% 1,000 ML IV PRN (14:17)
[2019-12-20] MEDS ORDERED: methylPREDNISolone SOD SUC 125 MG/2 ML VIAL IV SCH (14:30)
[2019-12-20] MEDS: AMIODARONE INJ 450 MG in DEXTROSE 5% 241 ML IV SCH (14:38)
[2019-12-20 14:50] LABS: Anisocytosis 2+; Hypochromasia 2+; Lymphocytes 5 % (20-55); Nucleated Red Blood Cells 5 (0-5); Platelet Estimate Decreased; Poikilocytosis Slight; Segmented Neutrophils 95 % (50-85); Total Cells Counted 100
[2019-12-20 14:51] LABS: Polychromasia Few; Toxic Granulation 2+
[2019-12-20] MEDS: SODIUM POLYSTYRENE SULFATE 15 GM/60 ML BOTTLE PO PRN (16:58)
[2019-12-20] MEDS: MENTHOL/ZINC OXIDE OINT 71 GM JAR TOP SCH ×2 (16:58→21:52)
[2019-12-20] MEDS: methylPREDNISolone SOD SUC 40 MG/1 ML VIAL IV SCH (21:52)
[2019-12-21] MEDS: ALBUTEROL/IPRATROPIUM 3 ML NEB RESP TX SCH ×4 (00:39→19:25)
[2019-12-21] MEDS: INSULIN REGULAR 100 UNIT/ML SUBCUT SCH ×5 (03:13→23:56)
[2019-12-21 04:47] VITALS: BP 63/37
[2019-12-21] MEDS: cilostazoL 50 MG TABLET PO SCH ×2 (09:19→20:53)
[2019-12-21] MEDS: carvediloL 6.25 MG TABLET PO SCH ×2 (09:19→20:53)
[2019-12-21] MEDS: AMIODARONE 200 MG TABLET PO SCH ×3 (09:19→20:54)
[2019-12-21] MEDS: FAMOTIDINE 20 MG/2 ML VIAL IV SCH (09:20)
[2019-12-21] MEDS: methylPREDNISolone SOD SUC 40 MG/1 ML VIAL IV SCH ×2 (09:20→20:53)
[2019-12-21] MEDS: CHLORHEXIDINE 0.12% ORAL RINSE 60 ML BOTTLE SWISH/SPIT SCH ×2 (09:31→20:53)
[2019-12-21] MEDS: MENTHOL/ZINC OXIDE OINT 71 GM JAR TOP SCH ×2 (09:31→20:53)
[2019-12-21] MEDS ORDERED: PHENYLEPHRINE DRIP 40 MG/250 ML PREMIX IV PRN (09:36)
[2019-12-21] MEDS: SODIUM POLYSTYRENE SULFATE 15 GM/60 ML BOTTLE PO PRN (12:29)
[2019-12-21] MEDS: MORPHINE 4 MG/1 ML VIAL IV PRN (15:32)
[2019-12-22] MEDS: ALBUTEROL/IPRATROPIUM 3 ML NEB RESP TX SCH ×4 (00:10→19:28)
[2019-12-22 03:50] LABS: ABG Base Excess -6.2 MMOL/L (-2.5-2.5); ABG HCO3 19.8 MMOL/L (20-26); ABG Oxygen Saturation 84.6 % (95-100); ABG PCO2 42.1 MM HG (35-48); ABG PH 7.291 (7.35-7.45); ABG TCO2 21.1 MMOL/L (23-27); Pt O2 Delivery Device Ventilator
[2019-12-22] MEDS: INSULIN REGULAR 100 UNIT/ML SUBCUT SCH ×4 (05:21→23:28)
[2019-12-22] MEDS: cilostazoL 50 MG TABLET PO SCH ×2 (09:00→21:35)
[2019-12-22] MEDS: methylPREDNISolone SOD SUC 40 MG/1 ML VIAL IV SCH ×2 (09:00→21:35)
[2019-12-22] MEDS: MENTHOL/ZINC OXIDE OINT 71 GM JAR TOP SCH ×2 (09:00→21:34)
[2019-12-22] MEDS: FAMOTIDINE 20 MG/2 ML VIAL IV SCH (09:00)
[2019-12-22] MEDS: CHLORHEXIDINE 0.12% ORAL RINSE 60 ML BOTTLE SWISH/SPIT SCH ×2 (09:00→21:34)
[2019-12-22] MEDS: AMIODARONE 200 MG TABLET PO SCH ×2 (09:00→21:34)
[2019-12-22] MEDS: carvediloL 6.25 MG TABLET PO SCH ×2 (09:00→21:35)
[2019-12-23] MEDS: ALBUTEROL/IPRATROPIUM 3 ML NEB RESP TX SCH ×3 (01:18→13:09)
[2019-12-23] MEDS: INSULIN REGULAR 100 UNIT/ML SUBCUT SCH ×3 (05:13→18:57)
[2019-12-23] MEDS: CHLORHEXIDINE 0.12% ORAL RINSE 60 ML BOTTLE SWISH/SPIT SCH (08:03)
[2019-12-23] MEDS: methylPREDNISolone SOD SUC 40 MG/1 ML VIAL IV SCH (08:03)
[2019-12-23] MEDS: cilostazoL 50 MG TABLET PO SCH (08:03)
[2019-12-23] MEDS: FAMOTIDINE 20 MG/2 ML VIAL IV SCH (08:03)
[2019-12-23] MEDS: MENTHOL/ZINC OXIDE OINT 71 GM JAR TOP SCH (08:03)
[2019-12-23] MEDS: AMIODARONE 200 MG TABLET PO SCH (08:03)
[2019-12-23] MEDS: carvediloL 6.25 MG TABLET PO SCH (08:03)
[2019-12-23] MEDS: MORPHINE 4 MG/1 ML VIAL IV PRN ×6 (08:18→19:53)
[2019-12-23 09:04] LABS: Hematocrit 20.1 VOL% (42.0-52.0); Hemoglobin 6.7 GM/DL (14.0-18.0); Immature Granulocytes % 1.2 %; Immature Granulocytes Absolute 0.05 #; Lymphocytes # 0.2 10*3/uL (1.4-4.0); Lymphocytes % 3.9 % (21.2-54.2); Mean Corpuscular HGB Conc 33.3 GM/DL (32-36); Mean Corpuscular Volume 90.1 FL (87-102); Monocytes % 3.4 % (1.7-12.7); NRBC # 0.13 10*3/uL; Neutrophils % 91.5 % (38.7-73.9); Red Blood Count 2.23 MC/CUMM (3.8-5.5); White Blood Count 4.1 T/CUMM (4-12)
[2019-12-23 09:10] LABS: Platelet Count 4 T/CUMM (130-400)
[2019-12-23 09:29] LABS: Calcium 6.7 MG/DL (8.5-10.1); Osmolality,Calculated 334.2 MOS/KG (273-304)
[2019-12-23 09:53] LABS: Anisocytosis 1+; Band Neutrophils 16 % (0-10); Lymphocytes 4 % (20-55); Metamyelocytes 1 %; Nucleated Red Blood Cells 4 (0-5); Platelet Estimate Decreased; Segmented Neutrophils 75 % (50-85); Smudge Cells Few; Tear Drop Cells Few; Total Cells Counted 100
[2019-12-23 09:54] LABS: Macrocytosis 1+
[2019-12-23] MEDS: DEXTROSE 10% 250 ML BAG IV PRN (18:13)
[2019-12-23] MEDS ORDERED: LORazepam 2 MG/1 ML VIAL IV PRN (18:55)
== END 2019-12-23 20:08 | disposition expired | DRG 219 ==
LOC: N.ED 19:29 → SUATTDRO 21:29 → N.EDINP 21:29 → SUPCPDRO 21:29 → N.ICU 11-28 01:20 → N.CVR 12-07 17:57
PROVIDERS: ADMIT Internal Medicine; ATTEND Internal Medicine
PROC: CABGMVR (ICD-10-PCS; 2019-11-29 07:04)